=== PATIENT | male | born 1935 | race Caucasian/White ===

== ENCOUNTER → 2020-05-11 09:56 | Outpatient (BNVA) | payer MEDICARE, SELFPAY | PROVIDERS: PCP Internal Medicine; Visit Provider Urology | DX: B37.49 Other urogenital candidiasis (principal) | CPT/HCPCS: 99212 ==

== ENCOUNTER → 2020-05-28 10:03 | Outpatient (BNVA) | payer MEDICARE, SELFPAY | PROVIDERS: PCP Internal Medicine; Visit Provider Urology | DX: B37.49 Other urogenital candidiasis (principal) | CPT/HCPCS: 81002; 99212 ==

== ENCOUNTER 2020-09-18 10:42 | Outpatient (REF) | payer MEDICARE, SELFPAY ==
[2020-09-18 11:38] LABS: MANUAL DIFF FLAG NO
[2020-09-18 11:56] LABS: Basophils Percent Auto 0.6 % (0-2); Eosinophils Percent Auto 0.4 % (0-4); Hematocrit 52.4 % (42-52); Imm Gran Abs Auto 0.02 X10*3/uL (0.00-0.03); Imm Gran Pct Auto 0.3 % (0.0-0.4); Lymphocytes Percent Auto 14.3 % (20-40); Mean Corpuscular HGB Conc 32.4 g/dl (31.0-36.0); Mean Corpuscular Hemoglobin 28.8 pg (27.0-33.0); Mean Corpuscular Volume 88.7 fL (80-98); Mean Platelet Volume 10.8 fL (9.4-12.4); Monocytes Absolute Auto 0.9 X10*3/uL (0.1-1.2); Monocytes Percent Auto 12.5 % (2-11); Neutrophils Absolute Auto 5.2 X10*3/uL (2.0-8.3); Neutrophils Percent Auto 71.9 % (45-73); Platelet Count 197 X10*3/uL (160-400); Red Blood Count 5.91 X10*6/uL (4.60-5.80); Red Cell Distribution Width 14.2 % (11.0-16.0); White Blood Count 7.3 X10*3/uL (4.8-10.8)
[2020-09-18 12:38] LABS: Free T4 (Free Thyroxine) 0.79 ng/dL (0.71-1.85); Thyroid Stimulating Hormone 2.18 uIU/mL (0.32-4.0)
[2020-09-18 12:47] LABS: Vitamin B12 239 pg/mL (200-900)
[2020-09-18 12:49] LABS: Alanine Aminotransferase 12 U/L (0-40); Albumin Level 4.3 g/dL (3.5-5.0); Alkaline Phosphatase 81 U/L (39-117); Anion Gap 15 (12-20); Aspartate Amino Transferase 17 U/L (5-37); Bilirubin Total 0.5 mg/dL (0.0-1.0); Blood Urea Nitrogen 31 mg/dL (9-16); C Reactive Protein 0.13 mg/dL (< or = 0.50); Calcium 9.3 mg/dL (8.4-10.2); Carbon Dioxide 24 mmol/L (22-29); Chloride 105 mmol/L (96-108); Estimated Glomerular Filt Rate > 60; Glucose Random 123 mg/dL (60-115); Potassium 4.9 mmol/L (3.3-5.1); Sodium 139 mmol/L (135-145); Total Protein 7.1 g/dL (6.5-8.0)
== END 2020-09-18 10:43 | disposition home or self-care (01) ==
LOC: HO.10HDL 10:42
PROVIDERS: Visit Provider Internal Medicine
DX: I10 Essential (primary) hypertension (principal); N40.0 Benign prostatic hyperplasia without lower urinary tract symptoms; R25.1 Tremor, unspecified
CPT/HCPCS: 36415; 80053; 82607; 84439; 84443; 85025; 86140

== ENCOUNTER 2020-10-12 13:25 | Outpatient (REF) | payer MEDICARE, SELFPAY ==
--- NOTE | ~2020-10-12 | MR_ITS ---
EXAMINATION: MRI OF THE BRAIN WITHOUT CONTRAST CLINICAL INFORMATION: Ataxia, right face numbness, vertigo. COMPARISON: MRI scan of the brain 06/13/2017. TECHNIQUE: MRI of the brain was obtained using routine sequences without contrast. FINDINGS: No diffusion abnormalities are identified to suggest an acute or subacute infarct. No mass effect or midline shift is seen. The ventricles and sulci are commensurately prominent consistent with moderate diffuse volume loss. There are extensive areas of hyperintense T2 and FLAIR signal in the periventricular and subcortical white matter and in the marisa, increased compared to prior imaging and consistent with chronic microvascular ischemic changes. There are small basal ganglia lacunar infarcts and there are chronic infarcts in the guerra radiata. There are also bilateral changes from ?tat cribl? in the bilateral basal ganglia, demonstrated on prior imaging. No extra-axial fluid collections are seen. The brainstem and cerebellum are normal. No pathologic magnetic susceptibility artifact is identified on the gradient refocused acquisition. The study redemonstrates the chronic changes at the dens, which are unchanged. The major intracranial flow-voids at the level of the [place] of Kenny are preserved. 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 The dural venous sinus flow-voids are maintained. There is trace fluid at the mastoid tips. There are retention cysts in the bilateral maxillary sinuses. There has been interval increase in the size of the well-defined T2 hyperintense focus in the posterior right masseter muscle, which now measures 0.9 cm. MR/MR head/brain wo con IMPRESSION: 1. There are no acute bleeds or territorial infarcts. No masses are demonstrated. 2. 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 There is diffuse volume loss. 3. There has been slight interval increase in the size of the cystic area in the right masseter muscle. Stable changes at the dens. 4. 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 This can be further assessed with an MRA or CTA of the head
== END 2020-10-12 13:26 | disposition home or self-care (01) ==
LOC: HO.MRI 13:25
PROVIDERS: Visit Provider Psychiatry & Neurology Neurology
DX: R27.0 Ataxia, unspecified (principal)
CPT/HCPCS: 70551

== ENCOUNTER 2020-10-16 10:49 | Outpatient (REF) | payer MEDICARE, SELFPAY ==
[2020-10-16 12:37] LABS: Glucose Random 99 mg/dL (60-115)
[2020-10-16 13:14] LABS: Syphilis Screen Nonreactive (Nonreactive)
[2020-10-17 09:01] LABS: Lyme Abs Screen <0.90 index
[2020-10-18 15:27] LABS: Anti Nuclear Antibody Screen NEGATIVE (NEGATIVE)
[2020-10-20 23:11] LABS: Prot Elec - Albumin 4.2 g/dL (3.8-4.8); Prot Elec - Alpha1 0.3 g/dL (0.2-0.3); Prot Elec - Alpha2 0.8 g/dL (0.5-0.9); Prot Elec - Beta 1 0.5 g/dL (0.4-0.6); Prot Elec - Beta 2 0.3 g/dL (0.2-0.5); Prot Elec - Gamma 0.9 g/dL (0.8-1.7); Prot Elec - Total Protein 6.8 g/dL (6.1-8.1)
== END 2020-10-16 10:50 | disposition home or self-care (01) ==
LOC: HO.LAB 10:49
PROVIDERS: PCP Internal Medicine; Visit Provider Psychiatry & Neurology Neurology
DX: G62.9 Polyneuropathy, unspecified (principal)
CPT/HCPCS: 36415; 82947; 84155; 84165; 86038; 86039; 86617; 86618; 86780

== ENCOUNTER 2020-10-20 14:45 | Outpatient (REF) | payer MEDICARE, SELFPAY ==
--- NOTE | ~2020-10-20 | MR_ITS ---
EXAMINATION: MR ANGIOGRAPHY BRAIN WITHOUT CONTRAST CLINICAL INFORMATION: Intracranial aneurysm. COMPARISON: Brain MRI 10/12/2020. TECHNIQUE: A three-dimensional [id number] MR angiogram of the head was performed without contrast. MIP reconstructions were generated in multiple orientations at the acquisition workstation. Multiple three-dimensional surface rendered images and maximum intensity projection images were generated on a dedicated 3-D lab workstation. Arterial stenoses are measured in accordance with NASCET criteria or similar method if applicable. FINDINGS: There is an anteriorly projecting aneurysm of the anterior communicating artery that measures 3.4 mm from base apex. This finding is best depicted on axial image 124 of 156 series 3. Visualized portions of the anterior, middle, and posterior cerebral artery complexes are otherwise normal. There is a shallow laterally projecting contour abnormality involving the cavernous segment of the right internal carotid artery measuring 1.2 mm from base apex best illustrated on axial image 82 of the same series that may represent a small extradural aneurysm. Intracranial internal carotid arteries are otherwise normal. The intradural vertebral artery segments and basilar artery are normal. 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
== END 2020-10-20 14:46 | disposition home or self-care (01) ==
LOC: HO.MRI 14:45
PROVIDERS: Visit Provider Psychiatry & Neurology Neurology
DX: I72.9 Aneurysm of unspecified site (principal)
CPT/HCPCS: 70544

== ENCOUNTER 2020-10-26 10:18 | Outpatient (REF) | payer MEDICARE, SELFPAY ==
--- NOTE | ~2020-10-26 | US_ITS ---
EXAMINATION: US EXTRACRANIAL CAROTID DUPLEX, BILATERAL CLINICAL INFORMATION: TIA COMPARISON: None TECHNIQUE: Real-time ultrasound and Doppler techniques (integrating B-mode 2-D vascular images, Doppler spectral analysis and color-flow Doppler imaging) were utilized to interrogate the extracranial carotid arteries, the vertebral arteries and proximal subclavian arteries bilaterally. The degree of stenosis is determined by criteria similar to NASCET. FINDINGS: Right Side: 1. There is no atherosclerotic plaque seen in the bifurcation/proximal ICA region. 2. The common carotid artery PSV proximally is 65 cm/s and distally 48 cm/s. 3. The proximal internal carotid artery velocities are 43 cm/s systolic and 17 cm/s diastolic. 4. The proximal external carotid artery PSV is 78 cm/s. 5. The vertebral artery shows antegrade flow. Left Side: 1. There is no atherosclerotic plaque seen in the bifurcation/proximal ICA region. 2. The common carotid artery PSV proximally is 89 cm/s and distally 71 cm/s. 3. The proximal internal carotid artery velocities are 43 cm/s systolic and 14 cm/s diastolic. 4. The proximal external carotid artery PSV is 68 cm/s. 5. The vertebral artery shows antegrade flow. US/US carotid duplex BI IMPRESSION: 1. RIGHT: Normal right internal carotid artery without atherosclerotic plaque or hemodynamically significant stenosis. 2. LEFT: Normal left internal carotid artery without atherosclerotic plaque or hemodynamically significant stenosis.
[2020-10-26 12:35] LABS: MANUAL DIFF FLAG NO
[2020-10-26 12:40] LABS: Basophils Percent Auto 0.3 % (0-2); Eosinophils Percent Auto 0.3 % (0-4); Hematocrit 49.9 % (42-52); Hemoglobin 16.1 g/dl (14.0-18.0); Imm Gran Abs Auto 0.02 X10*3/uL (0.00-0.03); Imm Gran Pct Auto 0.2 % (0.0-0.4); Lymphocytes Absolute Auto 1.2 X10*3/uL (1.2-4.9); Lymphocytes Percent Auto 12.9 % (20-40); Mean Corpuscular HGB Conc 32.3 g/dl (31.0-36.0); Mean Corpuscular Hemoglobin 28.8 pg (27.0-33.0); Mean Corpuscular Volume 89.3 fL (80-98); Mean Platelet Volume 10.8 fL (9.4-12.4); Monocytes Absolute Auto 1.1 X10*3/uL (0.1-1.2); Monocytes Percent Auto 11.8 % (2-11); Neutrophils Absolute Auto 6.8 X10*3/uL (2.0-8.3); Neutrophils Percent Auto 74.5 % (45-73); Platelet Count 187 X10*3/uL (160-400); Red Blood Count 5.59 X10*6/uL (4.60-5.80); Red Cell Distribution Width 14.3 % (11.0-16.0); White Blood Count 9.1 X10*3/uL (4.8-10.8)
[2020-10-26 13:43] LABS: Alanine Aminotransferase 12 U/L (0-40); Albumin Level 4.1 g/dL (3.5-5.0); Alkaline Phosphatase 76 U/L (39-117); Anion Gap 13 (12-20); Aspartate Amino Transferase 18 U/L (5-37); Bilirubin Direct 0.2 mg/dL (0.0-0.5); Bilirubin Total 0.7 mg/dL (0.0-1.0); Blood Urea Nitrogen 27 mg/dL (9-16); Calcium 9.4 mg/dL (8.4-10.2); Carbon Dioxide 25 mmol/L (22-29); Chloride 106 mmol/L (96-108); Estimated Glomerular Filt Rate > 60; Glucose Random 94 mg/dL (60-115); Potassium 4.4 mmol/L (3.3-5.1); Sodium 140 mmol/L (135-145); Total Protein 6.7 g/dL (6.5-8.0)
[2020-10-26 13:44] LABS: TSH reflex Free T4 1.96 uIU/mL (0.32-4.0)
[2020-10-28 13:16] LABS: PES - Abn Protein Band 1 <0.2 g/dL (NONE DETECTED); Prot Elec - Albumin 4.1 g/dL (3.8-4.8); Prot Elec - Alpha1 0.3 g/dL (0.2-0.3); Prot Elec - Alpha2 0.7 g/dL (0.5-0.9); Prot Elec - Beta 1 0.4 g/dL (0.4-0.6); Prot Elec - Beta 2 0.3 g/dL (0.2-0.5); Prot Elec - Gamma 0.8 g/dL (0.8-1.7); Prot Elec - Total Protein 6.6 g/dL (6.1-8.1)
[2020-10-29 16:52] LABS: IgA 227 mg/dL (70-320); IgG 843 mg/dL (600-1540); IgM 148 mg/dL (50-300)
== END 2020-10-26 10:19 | disposition home or self-care (01) ==
LOC: HO.US 10:18
PROVIDERS: Visit Provider Psychiatry & Neurology Neurology
DX: G62.9 Polyneuropathy, unspecified (principal); I63.9 Cerebral infarction, unspecified; Z86.73 Personal history of transient ischemic attack (TIA), and cerebral infarction without residual deficits
CPT/HCPCS: 36415; 80053; 80076; 82248; 82784; 84155; 84165; 84443; 85025; 86334; 93880

== ENCOUNTER 2020-11-02 13:50 | Outpatient (REF) | payer MEDICARE, SELFPAY ==
[2020-11-05 13:01] LABS: PES - Abn Protein Band 1 <0.2 g/dL (NONE DETECTED); Prot Elec - Albumin 4.3 g/dL (3.8-4.8); Prot Elec - Alpha1 0.3 g/dL (0.2-0.3); Prot Elec - Alpha2 0.8 g/dL (0.5-0.9); Prot Elec - Beta 1 0.5 g/dL (0.4-0.6); Prot Elec - Beta 2 0.3 g/dL (0.2-0.5); Prot Elec - Gamma 0.9 g/dL (0.8-1.7)
[2020-11-05 13:52] LABS: IgA 239 mg/dL (70-320); IgG 883 mg/dL (600-1540); IgM 153 mg/dL (50-300)
== END 2020-11-02 13:51 | disposition home or self-care (01) ==
LOC: HO.LAB 13:50
PROVIDERS: PCP Internal Medicine; Visit Provider Psychiatry & Neurology Neurology
DX: G62.9 Polyneuropathy, unspecified (principal)
CPT/HCPCS: 36415; 82784; 84155; 84165; 86334

== ENCOUNTER → 2020-11-19 13:33 | Outpatient (REF) | payer MEDICARE, SELFPAY ==
--- NOTE | 2020-11-19 14:00 | CA_ITS ---
Transthoracic Echocardiogram Patient (Last, First, Middle): Yovanny Tiwari G Gender: Male Date of : 1935 Age: 85 Procedure Date: 11/19/2020 Procedure Type: Transthoracic Echocardiogram Location: OP Height: 187.96 cm Weight: 92.99 kg BSA: 2.20 m2 Heart Rate: bpm BP: 122 / 74 mmHg Reliability Manager: TIMMY Referring MD: Ilir Marcus MD Wedding Coordinator: Darin Cuba MD Symptoms: CVA Study Quality: Technically Difficult ECG Rhythm: Sinus Conclusions: - 1. Normal LV systolic function with impaired relaxation filling pattern 2. Moderately dilated ascending aorta 3. Normal cardiac valvular Doppler 4. No gross pericardial effusion Findings Left Ventricle Normal left ventricular size, thickness, and systolic function. The visually estimated ejection fraction is between 60-65%. Spectral Doppler is indicative of an impaired relaxation filling pattern. There is mild septal asymmetric hypertrophy. Right Ventricle The right ventricle was not well visualized. Atria The left atrium is normal in size. Interatrial shunt cannot be excluded. The right atrium was not well visualized. Aortic Valve The aortic valve structure and function is likely normal. There is mild calcification of the aortic valve. There is no aortic valve stenosis. There is no aortic valve regurgitation. Mitral Valve Likely normal mitral valve structure and function. There is trace mitral valve regurgitation. There is no mitral valve stenosis. Pulmonic Valve The pulmonic valve was not well visualized. Tricuspid Valve Likely normal tricuspid valve structure and function. Tricuspid regurgitation envelope is inadequate for calculation of right ventricular systolic pressure. String like linear density that is mobile, attached to tricuspid leaflet most likely ruptured cord Great Vessels The pulmonary artery was not well visualized. There is moderate dilatation of the ascending aorta. Venous The inferior vena cava is normal in size and collapses greater than 50% with inspiration. Pericardium/Pleural There is no evidence of pericardial effusion. Prior Study Comparison No prior study available for comparison. Measurements 2D Linear Measurements IVSd: 1.20 0.6-0.9/0.6-1.0 cm LVIDd: 4.46 3.9-5.3/4.2-5.9 cm LVIDd Index: 2.03 2.4-3.2/2.2-3.1 cm/m2 LVIDs: 2.43 2.0-3.6 cm LVPWd: 0.90 0.7-1.1 cm Ao Root: 3.80 2.1-3.5 cm LA Diam: 3.40 2.7-3.8/3.0-4.0 cm LAIDs Index: 1.55 1.5-2.3 cm/m2 LV Mass: 200.92 67-162/88-224 g LV Mass Index: 91.33 43-95/49-115 g/m2 LVOT Diam: 2.10 3.0+(-)1.3 cm 2D Systolic Function EF 4C: 68.50 >55% EF 2C: 76.10 >55% EF BiP: 72.40 >55% Mitral Valve MV Pk E: 0.53 MV PK A: 0.83 MV Decel Time: 326.00 E/A: 0.60 E'Lateral: 5.98 E'Medial: 5.22 E/E' Med: 10.10 E/E' Lat: 8.80 PHT: 95.00 MVA PHT: 2.32 Decel [place]: 1.62 Aortic Valve AoV Pk Kiel: 1.18 AoV Pk Grad: 6.00 LVOT LVOT Pk Kiel: 1.02 LVOT Mn Kiel: 0.67 LVOT VTI: 0.21 LVOT Pk Grad: 4.00 LVOT Mn Grad: 2.00 LVOT Diam: 2.10 LVOT Area: 3.46 Diastolic Function MV Pk E: 0.53 MV Pk A: 0.83 E/A: 0.60 E'Medial: 5.22 E/E' Med: 10.10 E' Laterial: 5.98 E/E' Lat: 8.80 Tricuspid Valve RA Press: 3.00 Great Vessels Aorta Ao Root-2D: 3.80 2.0-3.7 cm Ao Asc: 4.50 2.1-3.4 cm Ao Arch: 2.90 Updated in Other Vendor System with Status of Final Darin Cuba MD electronically signed on 11/20/2020 2:08:27 PM with status of Final
== END ==
LOC: HO.CARD 13:33
PROVIDERS: Visit Provider Psychiatry & Neurology Neurology
DX: Z86.73 Personal history of transient ischemic attack (TIA), and cerebral infarction without residual deficits (principal)
CPT/HCPCS: 93306

== ENCOUNTER → 2020-11-20 10:40 | Outpatient (REF) | payer MEDICARE, SELFPAY ==
--- NOTE | 2020-11-20 11:00 | HM_ITS ---
TEST PERFORMED: Cardiac event monitoring. INDICATION: Cerebral infarction. REQUESTING PHYSICIAN: Ilir Marcus MD. ENROLLMENT PERIOD: 11/21/2019 to 12/20/2020-30 days. FINDINGS: In the above monitoring period, the underlying rhythm was sinus. Rates ranged from 39 beats per minute to 97 beats per minute. There were no symptoms noted during this time. The rhythm is essentially sinus rhythm throughout. There was some sinus bradycardia more prominent during the sleep hours, but otherwise no other arrhythmia. CONCLUSION: Study shows sinus rhythm and sinus bradycardia during sleep hours, but otherwise unremarkable. Myron Castellano MD HS/MODL / [id number]
== END ==
LOC: HO.CARD 10:40
PROVIDERS: Visit Provider Psychiatry & Neurology Neurology
DX: Z86.73 Personal history of transient ischemic attack (TIA), and cerebral infarction without residual deficits (principal)
CPT/HCPCS: 93270

== ENCOUNTER 2020-11-25 13:00 | Outpatient (RCR) | payer MEDICARE, SELFPAY | END 2020-12-02 12:07 | disposition home or self-care (01) | LOC: HO.PTCHIC 13:00 | PROVIDERS: PCP Internal Medicine; Visit Provider Psychiatry & Neurology Neurology | DX: R27.0 Ataxia, unspecified (principal); M54.16 Radiculopathy, lumbar region | CPT/HCPCS: 97110; 97112; 97140; 97162; 97530 ==

== ENCOUNTER 2020-11-30 10:33 | Outpatient (REF) | payer MEDICARE, SELFPAY ==
--- NOTE | ~2020-11-30 | XR_ITS ---
EXAMINATION: XR LUMBOSACRAL SPINE CLINICAL INFORMATION: Low back pain COMPARISON: None TECHNIQUE: Three views of the lumbosacral spine. FINDINGS: There is mild curvature of the lower lumbar sacral spine to the left. Bone alignment is otherwise normal. No fracture or dislocation is seen. There is multilevel degenerative spondylosis. There is mild disc space narrowing at L5-S1. There is lower lumbar spine facet arthritis. There is evidence of atherosclerotic disease. XR/XR lumbar spine 2-3V IMPRESSION: Degenerative changes.
== END 2020-11-30 10:34 | disposition home or self-care (01) ==
LOC: HO.XRAY 10:33
PROVIDERS: PCP Internal Medicine; Visit Provider Psychiatry & Neurology Neurology
DX: M54.5 Low back pain (principal)
CPT/HCPCS: 72100

== ENCOUNTER 2021-01-06 11:17 | Outpatient (REF) | payer MEDICARE, SELFPAY ==
[2021-01-06 13:43] LABS: MANUAL DIFF FLAG NO
[2021-01-06 13:51] LABS: Basophils Percent Auto 0.5 % (0-2); Eosinophils Percent Auto 0.4 % (0-4); Hematocrit 51.8 % (42-52); Hemoglobin 16.7 g/dl (14.0-18.0); Imm Gran Abs Auto 0.02 X10*3/uL (0.00-0.03); Imm Gran Pct Auto 0.2 % (0.0-0.4); Lymphocytes Absolute Auto 1.1 X10*3/uL (1.2-4.9); Lymphocytes Percent Auto 12.9 % (20-40); Mean Corpuscular HGB Conc 32.2 g/dl (31.0-36.0); Mean Corpuscular Hemoglobin 28.6 pg (27.0-33.0); Mean Corpuscular Volume 88.7 fL (80-98); Mean Platelet Volume 11.4 fL (9.4-12.4); Monocytes Percent Auto 12.6 % (2-11); Neutrophils Percent Auto 73.4 % (45-73); Platelet Count 188 X10*3/uL (160-400); Red Blood Count 5.84 X10*6/uL (4.60-5.80); Red Cell Distribution Width 14.3 % (11.0-16.0); White Blood Count 8.2 X10*3/uL (4.8-10.8)
[2021-01-06 14:13] LABS: Prothrombin Time 11.2 SEC (9.9-13.0)
[2021-01-06 14:16] LABS: Partial Thromboplastin Time 36.7 SEC (24.1-38.0)
[2021-01-06 14:49] LABS: Anion Gap 16 (12-20); Blood Urea Nitrogen 27 mg/dL (9-16); Calcium 9.7 mg/dL (8.4-10.2); Carbon Dioxide 22 mmol/L (22-29); Chloride 104 mmol/L (96-108); Estimated Glomerular Filt Rate > 60; Glucose Random 122 mg/dL (60-115); Potassium 4.3 mmol/L (3.3-5.1); Sodium 138 mmol/L (135-145)
== END 2021-01-06 11:18 | disposition home or self-care (01) ==
LOC: HO.10HDL 11:17
PROVIDERS: PCP Internal Medicine; Visit Provider Internal Medicine
DX: Z01.818 Encounter for other preprocedural examination (principal); I10 Essential (primary) hypertension
CPT/HCPCS: 36415; 80048; 85025; 85610; 85730

== ENCOUNTER 2021-06-15 14:05 | Outpatient (REF) | payer MEDICARE, SELFPAY ==
--- NOTE | ~2021-06-15 | MR_ITS ---
MR ANGIOGRAPHY BRAIN WITHOUT CONTRAST CLINICAL INFORMATION: Aneurysm. COMPARISON: MRA head 10/20/2020. TECHNIQUE: Noncontrast [id number] MRA of the head is obtained. Vascular post-processing, including 2-dimensional and 3-dimensional reformatted images were created and reviewed on an independent workstation under concurrent physician supervision. Stenoses are graded per criteria similar to NASCET. 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 There are no new aneurysms. No significant arterial stenoses in no acute arterial occlusions intracranially. Etat crible appearance of the basal ganglia bilaterally as the sequela of chronic hypertension. 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 - Etat crible appearance of the basal ganglia bilaterally as the sequela of chronic hypertension.
== END 2021-06-15 14:06 | disposition home or self-care (01) ==
LOC: HO.MRI 14:05
PROVIDERS: PCP Internal Medicine; Visit Provider Psychiatry & Neurology Neurology
DX: I72.9 Aneurysm of unspecified site (principal)
CPT/HCPCS: 70544

== ENCOUNTER 2021-08-23 09:29 | Outpatient (REF) | payer MEDICARE, SELFPAY ==
[2021-08-23 10:43] LABS: MANUAL DIFF FLAG NO
[2021-08-23 10:46] LABS: Basophils Percent Auto 0.5 % (0-2); Eosinophils Percent Auto 0.3 % (0-4); Hematocrit 51.6 % (42.0-52.0); Hemoglobin 16.4 g/dl (14.0-18.0); Imm Gran Abs Auto 0.01 X10*3/uL (0.00-0.03); Imm Gran Pct Auto 0.2 % (0.0-0.4); Lymphocytes Absolute Auto 1.1 X10*3/uL (1.2-4.9); Lymphocytes Percent Auto 18.5 % (20-40); Mean Corpuscular HGB Conc 31.8 g/dl (31.0-36.0); Mean Corpuscular Hemoglobin 28.8 pg (27.0-33.0); Mean Corpuscular Volume 90.7 fL (80.0-98.0); Monocytes Absolute Auto 0.7 X10*3/uL (0.1-1.2); Monocytes Percent Auto 11.5 % (2-11); Neutrophils Absolute Auto 3.9 x10*3/uL (2.0-8.3); Platelet Count 190 X10*3/uL (160-400); Red Blood Count 5.69 X10*6/uL (4.60-5.80); Red Cell Distribution Width 14.3 % (11.0-16.0); White Blood Count 5.7 X10*3/uL (4.8-10.8)
[2021-08-23 11:03] LABS: Alanine Aminotransferase 17 U/L (0-40); Albumin Level 4.2 g/dL (3.5-5.0); Alkaline Phosphatase 72 U/L (39-117); Anion Gap 10 (12-20); Aspartate Amino Transferase 18 U/L (5-37); Bilirubin Total 0.8 mg/dL (0.0-1.0); Blood Urea Nitrogen 26 mg/dL (9-16); Calcium 9.4 mg/dL (8.4-10.2); Carbon Dioxide 28 mmol/L (22-29); Chloride 104 mmol/L (96-108); Cholesterol 143 mg/dL; Estimated Glomerular Filt Rate > 60; Glucose Fasting 99 mg/dL (60-99); HDL Cholesterol 40 mg/dL; LDL Cholesterol Calculated 85 mg/dl; Potassium 4.4 mmol/L (3.3-5.1); Sodium 138 mmol/L (135-145); Triglycerides 91 mg/dL
[2021-08-23 11:26] LABS: Prostate Specific Antigen 0.51 ng/mL (<0.05-4.0)
== END 2021-08-23 09:30 | disposition home or self-care (01) ==
LOC: HO.10HDL 09:29
PROVIDERS: Visit Provider Internal Medicine
DX: Z12.5 Encounter for screening for malignant neoplasm of prostate (principal); I10 Essential (primary) hypertension; N40.0 Benign prostatic hyperplasia without lower urinary tract symptoms; K57.90 Diverticulosis of intestine, part unspecified, without perforation or abscess without bleeding
CPT/HCPCS: 36415; 80053; 80061; 84153; 85025

== ENCOUNTER 2022-02-17 09:28 | Outpatient (REF) | payer MEDICARE, SELFPAY ==
[2022-02-23 09:07] LABS: Alpha-Tocopherol 9.2 mg/L (5.7-19.9); Beta-Gamma Tocopherol <1.0 mg/L (<=4.3)
[2022-02-23 14:56] LABS: Transglutaminase IgA <1.0 U/mL
== END 2022-02-17 09:29 | disposition home or self-care (01) ==
LOC: HO.10HDL 09:28
PROVIDERS: Visit Provider Internal Medicine
DX: R20.0 Anesthesia of skin (principal); R53.1 Weakness
CPT/HCPCS: 36415; 84446; 86364

== ENCOUNTER 2022-07-20 14:30 | Outpatient (REF) | payer MEDICARE, SELFPAY ==
[2022-07-21 13:41] LABS: Adenovirus F 40/41 Not Detected (Not Detect.); Astrovirus Not Detected (Not Detect.); Campylobacter Not Detected (Not Detect.); Cryptosporidium Not Detected (Not Detect.); Cyclospora cayetanensis Not Detected (Not Detect.); E. coli EAEC Not Detected (Not Detect.); E. coli EPEC Not Detected (Not Detect.); E. coli ETEC Not Detected (Not Detect.); E. coli STEC Not Detected (Not Detect.); Entamoeba histolytica Not Detected (Not Detect.); Giardia lamblia Not Detected (Not Detect.); Norovirus GI/GII Not Detected (Not Detect.); Plesiomonas shigelloides Not Detected (Not Detect.); Rotavirus A Not Detected (Not Detect.); Salmonella Not Detected (Not Detect.); Sapovirus Not Detected (Not Detect.); Shigella sp./EIEC Not Detected (Not Detect.); Vibrio Not Detected (Not Detect.); Vibrio Cholerae Not Detected (Not Detect.); Yersinia enterocolitica Not Detected (Not Detect.)
== END 2022-07-20 14:31 | disposition home or self-care (01) ==
LOC: HO.LNP 14:30
PROVIDERS: Visit Provider Internal Medicine
DX: R19.7 Diarrhea, unspecified (principal)
CPT/HCPCS: 87507

== ENCOUNTER 2022-08-26 15:16 | Outpatient (REF) | payer MEDICARE, SELFPAY ==
--- NOTE | ~2022-08-26 | MR_ITS ---
MRI OF THE BRAIN WITHOUT IV CONTRAST MRA OF THE BRAIN WITHOUT IV CONTRAST INDICATION: Aneurysm. Vision loss. COMPARISON: MRA head 06/15/2021 and brain MRI 10/12/2020. TECHNIQUE: Multiplanar multisequence MR imaging of the brain was obtained without IV contrast. Additionally, a noncontrast [id number] MRA of the head is obtained. Vascular post-processing, including 2-dimensional and 3-dimensional reformatted images were created and reviewed on an independent workstation under concurrent physician supervision. Stenoses are graded per criteria similar to NASCET. FINDINGS: BRAIN MRI: There is no hydrocephalus, extra-axial surface collection, or herniation. There is global cerebral volume loss, there is moderate chronic microangiopathy, and there is an etat crible appearance of the basal ganglia bilaterally as the sequela of chronic hypertension. The major flow voids at the skull base are preserved. There is no acute infarct on diffusion-weighted imaging. There is no intracranial hemorrhage on the gradient recalled echo acquisition. The midline structures are normal. The cerebellar tonsils are normally positioned. The cerebellum and brainstem are normal. Chronic os odontoideum again noted, unchanged when compared to cervical spine MRI dated 12/21/2007. Alignment stable. Osseous marrow signal intensity is homogenous. The visualized soft tissues are unremarkable. 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 There are no significant arterial stenoses and there are no acute arterial occlusions intracranially. MR/MR head/brain wo con IMPRESSION: - There are no acute intracranial findings. There is global cerebral volume loss, there is moderate chronic microangiopathy, and there is an etat crible appearance of the basal ganglia bilaterally as the sequela of chronic hypertension. 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 - Chronic os odontoideum again noted, unchanged when compared to cervical spine MRI dated 12/21/2007. Alignment stable
--- NOTE | ~2022-08-26 | MR_ITS ---
MRI OF THE BRAIN WITHOUT IV CONTRAST MRA OF THE BRAIN WITHOUT IV CONTRAST INDICATION: Aneurysm. Vision loss. COMPARISON: MRA head 06/15/2021 and brain MRI 10/12/2020. TECHNIQUE: Multiplanar multisequence MR imaging of the brain was obtained without IV contrast. Additionally, a noncontrast [id number] MRA of the head is obtained. Vascular post-processing, including 2-dimensional and 3-dimensional reformatted images were created and reviewed on an independent workstation under concurrent physician supervision. Stenoses are graded per criteria similar to NASCET. FINDINGS: BRAIN MRI: There is no hydrocephalus, extra-axial surface collection, or herniation. There is global cerebral volume loss, there is moderate chronic microangiopathy, and there is an etat crible appearance of the basal ganglia bilaterally as the sequela of chronic hypertension. The major flow voids at the skull base are preserved. There is no acute infarct on diffusion-weighted imaging. There is no intracranial hemorrhage on the gradient recalled echo acquisition. The midline structures are normal. The cerebellar tonsils are normally positioned. The cerebellum and brainstem are normal. Chronic os odontoideum again noted, unchanged when compared to cervical spine MRI dated 12/21/2007. Alignment stable. Osseous marrow signal intensity is homogenous. The visualized soft tissues are unremarkable. 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 There are no significant arterial stenoses and there are no acute arterial occlusions intracranially. MR/MR angio head wo con IMPRESSION: - There are no acute intracranial findings. There is global cerebral volume loss, there is moderate chronic microangiopathy, and there is an etat crible appearance of the basal ganglia bilaterally as the sequela of chronic hypertension. 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 - Chronic os odontoideum again noted, unchanged when compared to cervical spine MRI dated 12/21/2007. Alignment stable
== END 2022-08-26 15:17 | disposition home or self-care (01) ==
LOC: HO.MRI 15:16
PROVIDERS: PCP Internal Medicine; Visit Provider Psychiatry & Neurology Neurology
DX: I77.9 Disorder of arteries and arterioles, unspecified (principal); H54.7 Unspecified visual loss
CPT/HCPCS: 70544; 70551

== ENCOUNTER → 2023-01-13 13:36 | Outpatient (REF) | payer MEDICARE, SELFPAY ==
--- NOTE | 2023-01-13 13:40 | CA_ITS ---
Transthoracic Echocardiogram Patient (Last, First, Middle): Yovanny Tiwari G Gender: Male Date of : 1935 Age: 87 Procedure Date: 01/13/2023 Procedure Type: Transthoracic Echocardiogram Location: OP Height: 187.96 cm Weight: 90.72 kg BSA: 2.17 m2 Heart Rate: 45 bpm BP: 150 / 80 mmHg Diesel Engine Tester: NANCY Referring MD: Josemanuel Vital MD Symptoms: DIZZINESS,HTN R/LACUNAR INFARCTS R42 Study Quality: Technically Difficult ECG Rhythm: Bradycardia Conclusions: - The left ventricular systolic function is normal. The calculated ejection fraction is 58% by biplane method. 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 - Consider chest CTA for further evaluation. Findings Left Ventricle Normal left ventricular cavity size. There is mildly increased left ventricular wall thickness. The left ventricular systolic function is normal. The calculated ejection fraction is 58% by biplane method. There is no evidence of regional wall motion abnormalities. Evidence suggests grade I (mild) diastolic dysfunction. LV peak GLS -17.2%. Right Ventricle Moderately increased right ventricular cavity size. There is normal right ventricular systolic function. Atria Both atria are normal in size. Aortic Valve There is mild calcification of the aortic valve. There is no aortic valve stenosis. There is no aortic valve regurgitation. Mitral Valve There is mild mitral annular calcification. There is no mitral valve regurgitation. There is no mitral valve stenosis. Pulmonic Valve The pulmonic valve is likely normal. Tricuspid Valve Normal tricuspid valve structure. There is no tricuspid valve regurgitation. Tricuspid regurgitation envelope is inadequate for calculation of right ventricular systolic pressure. 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 Venous The inferior vena cava was not well visualized. The inferior vena cava is normal in size. Pericardium/Pleural There is no evidence of pericardial effusion. Prior Study Comparison Changes noted compared to prior study dated: 11/19/2020. Increase in ascending aortic size. Measurements 2D Linear Measurements IVSd: 1.15 0.6-0.9/0.6-1.0 cm LVIDd: 4.40 3.9-5.3/4.2-5.9 cm LVIDd Index: 2.03 2.4-3.2/2.2-3.1 cm/m2 LVIDs: 2.62 2.0-3.6 cm LVPWd: 1.01 0.7-1.1 cm LA Diam: 3.50 2.7-3.8/3.0-4.0 cm LAIDs Index: 1.61 1.5-2.3 cm/m2 LV Mass: 205.00 67-162/88-224 g LV Mass Index: 94.47 43-95/49-115 g/m2 LVOT Diam: 2.20 3.0+(-)1.3 cm 2D Systolic Function EF 4C: 52.10 >55% EF 2C: 62.90 >55% EF BiP: 57.90 >55% Mitral Valve MV Pk E: 0.49 MV PK A: 1.08 MV Decel Time: 466.00 E/A: 0.50 E'Lateral: 7.94 E'Medial: 3.70 E/E' Med: 13.30 E/E' Lat: 6.20 PHT: 137.00 MVA PHT: 1.61 Decel [place]: 1.06 Aortic Valve AoV Pk Kiel: 1.11 AoV Mn Kiel: 0.76 AoV VTI: 0.27 AoV Pk Grad: 5.00 Aov Mn Grad: 3.00 LUKAS Cont.VTI: 3.70 LVOT LVOT Pk Kiel: 1.02 LVOT Mn Kiel: 0.71 LVOT VTI: 0.26 LVOT Pk Grad: 4.00 LVOT Mn Grad: 2.00 LVOT Diam: 2.20 LVOT Area: 3.80 Diastolic Function MV Pk E: 0.49 MV Pk A: 1.08 E/A: 0.50 E'Medial: 3.70 E/E' Med: 13.30 E' Laterial: 7.94 E/E' Lat: 6.20 Right Ventricle TAPSE (mm): 28.80 TVS' Kiel: 13.30 Great Vessels Aorta Sinus of Valsalva: 4.30 2.0-3.5 cm Ao Asc: 4.80 2.1-3.4 cm Ao Arch: 3.10 Pulmonary Valve PV Pk Kiel: 0.80 Peak PV Grad: 3.00 Updated in Other Vendor System with Status of Final Myron Castellano MD electronically signed on 01/14/2023 11:35:29 AM with status of Final
== END ==
LOC: HO.CARD 13:36
PROVIDERS: PCP Internal Medicine; Visit Provider Internal Medicine
DX: R42 Dizziness and giddiness (principal)
CPT/HCPCS: 93306; 93356

== ENCOUNTER → 2023-01-13 13:40 | Outpatient (BNV) | payer MEDICARE, SELFPAY | PROVIDERS: PCP Internal Medicine; Visit Provider Internal Medicine | DX: I51.9 Heart disease, unspecified (principal) | CPT/HCPCS: 93306 ==

== ENCOUNTER 2023-07-20 14:28 | Outpatient (REF) | payer MEDICARE, SELFPAY ==
[2023-07-20 14:47] LABS: MANUAL DIFF FLAG NO
[2023-07-20 15:31] LABS: Basophils Absolute Auto 0.1 X10*3/uL (0.0-0.2); Basophils Percent Auto 0.6 % (0-2); Eosinophils Percent Auto 0.5 % (0-4); Hematocrit 50.4 % (42.0-52.0); Hemoglobin 16.1 g/dl (14.0-18.0); Imm Gran Abs Auto 0.02 X10*3/uL (0.00-0.03); Imm Gran Pct Auto 0.2 % (0.0-0.4); Lymphocytes Absolute Auto 1.4 X10*3/uL (1.2-4.9); Lymphocytes Percent Auto 16.4 % (20-40); Mean Corpuscular HGB Conc 31.9 g/dl (31.0-36.0); Mean Corpuscular Volume 87.5 fL (80.0-98.0); Mean Platelet Volume 10.7 fL (9.4-12.4); Neutrophils Absolute Auto 6.1 x10*3/uL (2.0-8.3); Neutrophils Percent Auto 70.3 % (45-73); Platelet Count 195 X10*3/uL (160-400); Red Blood Count 5.76 X10*6/uL (4.60-5.80); Red Cell Distribution Width 14.2 % (11.0-16.0); White Blood Count 8.6 X10*3/uL (4.8-10.8)
[2023-07-20 16:06] LABS: Alanine Aminotransferase 15 U/L (0-40); Albumin Level 4.3 g/dL (3.5-5.0); Alkaline Phosphatase 90 U/L (39-117); Anion Gap 14 (12-20); Aspartate Amino Transferase 19 U/L (5-37); Bilirubin Total 0.3 mg/dL (0.0-1.0); Blood Urea Nitrogen 27 mg/dL (9-16); C Reactive Protein < 0.10 mg/dL (< or = 0.50); Calcium 9.7 mg/dL (8.4-10.2); Carbon Dioxide 28 mmol/L (22-29); Chloride 103 mmol/L (96-108); Estimated Glomerular Filt Rate 56; Glucose Random 88 mg/dL (60-115); Potassium 4.7 mmol/L (3.3-5.1); Sodium 140 mmol/L (135-145); Total Protein 7.4 g/dL (6.5-8.0)
[2023-07-20 16:17] LABS: T4 Thyroxine 6.1 ug/dL (4.5-12.0); Thyroid Stimulating Hormone 2.64 uIU/mL (0.32-4.0)
[2023-07-20 16:22] LABS: Erythrocyte Sedimentation Rate 2 MM/HR (0-15)
[2023-07-20 16:35] LABS: Folate 8.2 ng/mL (> or = 4.0); Prostate Specific Antigen 0.59 ng/mL (<0.05-4.0)
[2023-07-20 16:40] LABS: Vitamin B12 375 pg/mL (200-900)
== END 2023-07-20 14:29 | disposition home or self-care (01) ==
LOC: HO.LAB 14:28
PROVIDERS: PCP Internal Medicine; Visit Provider Internal Medicine
DX: R53.1 Weakness (principal); D64.9 Anemia, unspecified; I10 Essential (primary) hypertension; Z12.5 Encounter for screening for malignant neoplasm of prostate
CPT/HCPCS: 36415; 80053; 82550; 82607; 82746; 84153; 84436; 84443; 85025; 85652; 86140

== ENCOUNTER 2024-06-21 13:50 | Outpatient (REF) | payer MEDICARE, SELFPAY ==
[2024-06-21 14:07] LABS: MANUAL DIFF FLAG NO
[2024-06-21 14:40] LABS: Basophils Absolute Auto 0.1 X10*3/uL (0.0-0.2); Basophils Percent Auto 0.6 % (0-2); Eosinophils Percent Auto 0.3 % (0-4); Hematocrit 48.8 % (42.0-52.0); Hemoglobin 15.9 g/dl (14.0-18.0); Imm Gran Abs Auto 0.03 X10*3/uL (0.00-0.03); Imm Gran Pct Auto 0.3 % (0.0-0.4); Lymphocytes Absolute Auto 1.6 X10*3/uL (1.2-4.9); Lymphocytes Percent Auto 16.8 % (20-40); Mean Corpuscular HGB Conc 32.6 g/dl (31.0-36.0); Mean Corpuscular Hemoglobin 28.9 pg (27.0-33.0); Mean Corpuscular Volume 88.7 fL (80.0-98.0); Mean Platelet Volume 11.1 fL (9.4-12.4); Monocytes Absolute Auto 1.2 X10*3/uL (0.1-1.2); Neutrophils Absolute Auto 6.5 x10*3/uL (2.0-8.3); Platelet Count 195 X10*3/uL (160-400); Red Cell Distribution Width 14.6 % (11.0-16.0); White Blood Count 9.4 X10*3/uL (4.8-10.8)
[2024-06-21 14:54] LABS: Appearance Urine Clear; Color Urine Dark Yellow; Glucose Urine UA Negative (Negative); Leukocyte Esterase Urine Negative (Negative); Nitrite Urine Negative (Negative); Urine Blood Negative (Negative); Urine Ketones Negative (Negative); Urine Protein Negative (Neg-Trace)
[2024-06-21 15:17] LABS: Alanine Aminotransferase 18 U/L (0-40); Albumin Level 4.1 g/dL (3.5-5.0); Anion Gap 13 (12-20); Aspartate Amino Transferase 25 U/L (5-37); Bilirubin Total 0.3 mg/dL (0.0-1.0); Blood Urea Nitrogen 30 mg/dL (9-16); Calcium 9.6 mg/dL (8.4-10.2); Carbon Dioxide 25 mmol/L (22-29); Chloride 107 mmol/L (96-108); Cholesterol 148 mg/dL (<200); Estimated Glomerular Filt Rate > 60; Glucose Random 100 mg/dL (60-115); Potassium 4.3 mmol/L (3.3-5.1); Sodium 141 mmol/L (135-145); Total Protein 7.3 g/dL (6.5-8.0)
[2024-06-21 16:24] LABS: Alkaline Phosphatase 92 U/L (39-117)
[2024-06-21 17:19] LABS: Prostate Specific Antigen 1.04 ng/mL (<0.05-4.0)
== END 2024-06-21 13:51 | disposition home or self-care (01) ==
LOC: HO.LAB 13:50
PROVIDERS: PCP Internal Medicine; Visit Provider Internal Medicine
DX: I10 Essential (primary) hypertension (principal); Z12.5 Encounter for screening for malignant neoplasm of prostate; N40.0 Benign prostatic hyperplasia without lower urinary tract symptoms
CPT/HCPCS: 36415; 80053; 81003; 82465; 84153; 85025

== ENCOUNTER 2024-10-10 14:12 | Outpatient (AMB) | payer MEDICARE, SELFPAY ==
--- NOTE | 2024-10-10 14:10 | MHC.PC.OV ---
Vital Signs 10/10/24 14:18 Weight 195 lb BP 130/63 Respiration 14 Pulse 60 Pulse Source Pulse Oximeter Temp 98.0 F Temp Source Temporal Artery Scan Pulse Oximetry (%) 98 Oxygen Delivery Method Room Air Intake Visit Reasons: Routine Beef Specialist Required: No Accompanied by: Self / Same As Patient Allergies No Known Allergies [No Known Allergies*] Allergy (Unverified 10/10/24 14:11) Tobacco use date assessed: 10/10/24 Fall risk assessment: 1 Fall in past year Last assessed Fall Risk: 10/10/24 Dental Screening Dental Screen Date: 10/10/24 Did you have a dental visit in the last 12 months?: Yes Did you have a dental problem in the last 6 months where you did not have access to dental care?: No Was dental information given to patient?: Patient has dentist HPI HPI Comments History of Present Illness Details The patient is a 88 year old male with a past medical history of hypertension, BPH, balance issues, presenting for follow up. CV: On 130/63. Denies chest pain, shortness of breath. Ongoing issues with balance. Follows with Dr Marcus. No dizziness/vertigo. Easier to fatigue. 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 Legs frequently heavy. Feels uncoordinated ROS see HPI PHYSICAL EXAM: GENERAL: Alert and oriented x 3. NAD EYES: EOMI. Anicteric. HENT: Moist mucous membranes. No scleral icterus. No cervical lymphadenopathy. LUNGS: Clear to auscultation bilaterally. CARDIOVASCULAR: Regular rate and rhythm. No murmur. No JVD. ABDOMEN: Soft, non-tender +bs EXTREMITIES: No edema. Non-tender. SKIN: No rashes or lesions. Warm. NEUROLOGIC: No focal neurological deficits. CN II-XII grossly intact PSYCHIATRIC: Cooperative. Appropriate mood and affect [facility] Medical History Hematuria HTN (hypertension) Yeast dermatitis of penis Family History Father No problems noted. Mother No problems noted. Social History Housing: House Unable to assess alcohol history related to: Unknown Alcohol intake: current Alcohol intake frequency: does not drink Patient Tobacco Use Status: Former Tobacco user Tobacco use type: Pipe service: Yes Current occupational status: retired Cognitive needs: Yes (cane ) Hearing needs: No Vision needs: Yes (rx glassed) Questionnaire PHQ-9 Over the last 2 weeks, how often have you been bothered by any of the following problems? 1. Little interest or pleasure in doing things: not at all 2. Feeling down, depressed, or hopeless: not at all 3. Trouble falling or staying asleep, or sleeping too much: not at all 4. Feeling tired or having little energy: not at all 5. Poor appetite or overeating: not at all 6. Feeling bad about yourself - or that you are a failure or have let yourself or your family down: not at all 7. Trouble concentrating on things, such as reading the newspaper or watching television: not at all 8. Moving or speaking so slowly that other people could have noticed. Or the opposite - being so fidgety or restless that you have been moving around a lot more than usual: not at all 9. Thoughts that you would be better off or of hurting yourself in some way: not at all Total score: 0 Depression Screening Interpretation: Negative Depression Screening Done: Yes 18718 - PHQ-9 Billing: Yes Source: Developed by Drs. Yovanny Espino, Leslie Odell, Anders Limon and colleagues, with an educational eben from [employer]. Thrive Questionnaire Date Thrive assessed: 10/10/24 I am a: Patient What is your living situation today?: I have a steady place to live Within the past 12 months, did the food you bought not last and you didn't have the money to get more?: Never true Within the past 12 months, did you worry whether your food would run out before you got money to buy more?: Never true Do you have trouble paying for medicines?: No Do you have trouble getting transportation to medical appointments?: No Do you have trouble paying your heating and electricity bill?: No Do you have trouble taking care of your child, family member or friend?: No Do you have trouble with day-to-day activities such as bathing, preparing meals, shopping, managing finances, etc.?: No Are you currently unemployed and looking for a job?: No Are you interested in more education?: No Please select the resources that you would like help with: None THRIVE Score: 0 AUDIT C Alcohol Use Questionnaire (AUDIT-C) 1. How often do you have a drink containing alcohol?: Never 3. How often do you have six or more drinks on one occasion?: Never Total Score: 0 LI-7 AMB Questionnaire LI-7 Date LI - 7 assessed: 10/10/24 Feeling nervous, anxious, or on edge: 0 = Not at all Not being able to stop or control worryin = Not at all Worrying too much about different things: 0 = Not at all Trouble relaxin = Not at all Being so restless that it is hard to sit still: 0 = Not at all Becoming easily annoyed or irritable: 0 = Not at all Feeling afraid as if something awful might happen: 0 = Not at all Total LI-7 score (0-4 normal; 5-9 mild; 10-14 moderate; 15-21 severe): 0 Source: Developed by Drs. Yovanny Espino, Leslie Odell, Anders Limon and colleagues, with an educational eben from [employer]. Physical exam (Primary Care) Vital Signs: Last Vital Signs Temp 98.0 F 10/10/24 14:18 Pulse 60 10/10/24 14:18 Resp 14 10/10/24 14:18 BP 130/63 10/10/24 14:18 Pulse Ox 98 10/10/24 14:18 Oxygen Delivery Method Room Air 10/10/24 14:18 Tobacco/Smoking Status: Tobacco use Status Tobacco use date assessed 10/10/24 10/10/24 14:14 Patient Tobacco Use Status Former Tobacco user 10/10/24 14:24 Tobacco use type Pipe 10/10/24 14:24 PHQ-9: PHQ-9 Score PHQ-9: Total score 0 10/13/24 11:06 Depression Screening Interpretation: Negative Thrive Assessment: Date of Thrive Assessment Date Thrive assessed 10/10/24 10/10/24 14:14 Coding Level of Care Code New Pt Level 4 (75515) Complex EM visit Add On G2211 Diagnoses Neuropathy G62.9 Cerebral aneurysm I67.1 Leg heaviness R29.898 Lumbar disc disease M51.9 Additional Codes PHQ-9 - 26917 - PHQ-9 Billing: Yes [id number]) Assessment & Plan Assessment & Plan (1) Neuropathy: Code(s): G62.9 - Polyneuropathy, unspecified Category: Medical (2) Cerebral aneurysm: Code(s): I67.1 - Cerebral aneurysm, nonruptured Category: Medical (3) Leg heaviness: Code(s): R29.898 - Other symptoms and signs involving the musculoskeletal system Category: Medical (4) Lumbar disc disease: Code(s): M51.9 - Unspecified thoracic, thoracolumbar and lumbosacral intervertebral disc disorder Category: Medical Plan 89 year old male to establish care Past medical, surgical, social reviewed Continued issues with balance, falls Labs ordered MRI lumbar spine Orders: Orders MR lumbar spine wo con 10/10/24 M51.9 - Unspecified thoracic, thoracolumbar and lumbosacral intervertebral disc disorder, R26.89 - Other abnormalities of gait and mobility, R29.898 - Other symptoms and signs involving the musculoskeletal system Vitamin B12 and Folate 10/11/24 G62.9 - Polyneuropathy, unspecified, M51.9 - Unspecified thoracic, thoracolumbar and lumbosacral intervertebral disc disorder, R26.89 - Other abnormalities of gait and mobility, R29.898 - Other symptoms and signs involving the musculoskeletal system Hemoglobin A1c 10/11/24 G62.9 - Polyneuropathy, unspecified, M51.9 - Unspecified thoracic, thoracolumbar and lumbosacral intervertebral disc disorder, R26.89 - Other abnormalities of gait and mobility, R29.898 - Other symptoms and signs involving the musculoskeletal system Complete Blood Count Auto Diff 10/11/24 G62.9 - Polyneuropathy, unspecified, M51.9 - Unspecified thoracic, thoracolumbar and lumbosacral intervertebral disc disorder, R26.89 - Other abnormalities of gait and mobility, R29.898 - Other symptoms and signs involving the musculoskeletal system UA CC w/rflx Micro + Cult 10/11/24 G62.9 - Polyneuropathy, unspecified, M51.9 - Unspecified thoracic, thoracolumbar and lumbosacral intervertebral disc disorder, R29.898 - Other symptoms and signs involving the musculoskeletal system Pathologist Review - CBC 10/11/24 G62.9 - Polyneuropathy, unspecified, M51.9 - Unspecified thoracic, thoracolumbar and lumbosacral intervertebral disc disorder, R26.89 - Other abnormalities of gait and mobility, R29.898 - Other symptoms and signs involving the musculoskeletal system MR head/brain w con 10/10/24 G62.9 - Polyneuropathy, unspecified, H93.19 - Tinnitus, unspecified ear, M51.9 - Unspecified thoracic, thoracolumbar and lumbosacral intervertebral disc disorder, R26.89 - Other abnormalities of gait and mobility Basic Metabolic Panel 10/11/24 G62.9 - Polyneuropathy, unspecified, M51.9 - Unspecified thoracic, thoracolumbar and lumbosacral intervertebral disc disorder, R29.898 - Other symptoms and signs involving the musculoskeletal system Referrals Neurosurgery Referral I67.1 - Cerebral aneurysm, nonruptured
[2024-10-10 14:18] VITALS: BP 130/63; PULSE 60; RESP 14; TEMP 36.7; O2SAT 98
--- OUTSIDE RECORDS SUMMARY | 2024-10-10 14:19 | XMS_ITS ---
Author Organization [facility] j[facility]leen [facility] Address [address] [facility] [place] [address] Care Team Providers Care Boiler Repair Supervisor Name Role Phone Josemanuel Vital MD Primary Care Provider Declan Elliott Unavailable [phone] Allergies No Known Allergies REASON FOR VISIT At Risk Footcare, Painful Nail(s) aggravated by shoes and causing difficulty standing/walking. Medications Medication SIG (Take, Route, Fr equency, Duration) Notes Start Date End Date Status Lisinopril 5 MG Orally Acti ve Gabapentin 300 MG as directed Oral Once a day Not-Taking Aspirin 81 MG 1 tablet Orally Once a day for 30 day(s) Not-Taking Social History Tobacco Use: Social History Observation Description Date Details (start date - stop date) Never Smoker NA - NA Tobacco use other than smoking: Question Answer Notes Are you an other tobacco user? No Tobacco Control (Standard) Question Answer Notes Tobacco use: Nonsmoker Additional Findings: Tobacco non-user Current no nsmoker Section Notes: Smokes pipe, claims to not i nhale Vital Signs Height 6 ft in 06/07/2024 Weight 200 lbs 06/07/2024 BMI 27.12 kg/m2 06/07/2024 Blood pressure systolic 120 mm Hg 06/07/19 25 Blood pressure diastolic 80 mm Hg 025 Procedures Procedure Date Ordered Date Performed Result Body Sit e 67358-FGFJQMV NAIL, 6 OR MORE 06/07/2024 N/A 44670-VLNC SKIN LESIONS, OVER 4 06/07/2024 N/A Encounters Encounter Location Date Provider Diagnosis [facility] [address] [facility] [place] [address] 06/07/2024 Declan Burgess Atherosclerosis of [place] artery of both lower extremities, with unspecified presence of clinical manifestation I70.203 ; Tinea unguium B35.1 ; Pain in right toe(s) M79.674 and Pain in left toe(s) M79.675 Assessments Encounter Date Diagnosis (ICD Code) Assessment Notes Treatment Notes Treatment Clinical Notes Section Notes 06/07/2024 Atherosclerosis of [place] artery of both lower extremities, with unspecified presence of clinical manifestation (ICD-10 - I70.203) Q7(A), Q8(2B), Q9(1B,2C) 06/07/2024 Tinea unguium (ICD-10 - B35.1) 06/07/2024 Pain in right toe(s) (ICD-10 - M79.674) 06/07/2024 Pain in left toe(s) (ICD-10 - M79.675) Plan Of Treatment Pending Test Test Name Order Date 57831-DBTGIKO NAIL, 6 OR MORE 06/07/2024 75740-RPXU SKIN LESIONS, OVER 4 06/07/19 25 Next Appt Details Follow Up: prn, Reason: Provider Name:Declan Burgess , 12/06/2024 10:00:00 AM, [address] [place] [address], [place], [address], Procedure Notes * Category Sub-Category Detail Notes Debride Nail 6-10 Nail debridement Due to the cl inical pathology outlined in the exam findings, performance of this nail treatment is medically necessary as its management by an unskilled/untrained nonprofessional would put this patients foot and overall health at risk. Therefore, debridement to affected nail(s), as described in exam ( TA, T2, T3, T4, T5, T6, T7, T9), was performed exclusively by the physician of record to reduce/remove overall nail length, girth, thickness, subungual debris, and necrotic tissue, by manual and/or electrical means through the use of a nail nipper and/or dremel-type thread tool grinder set up operator, to a more viable healthy nail plate or bed tissue 6-10 nails in total. Silver nitrate was used for any petechial bleeding as necessary. Definitive antifungal treatment options, both pharmaceutical and surgical, have been reviewed and discussed with the patient. The patient solely prefers the use of intermittent/as needed professional debridement services for their nail condition and understands the need for additional periodic treatments to maintain effectiveness in symptomatic relief - 91701 Keratoma Treatment Parring or Cutting o f Benign Hyperkeratotic Lesion(s) (-57) More than 4 Lesions - Due to the at risk nature of the patients medical condition as documented in the exam findings, performance of this keratoderma treatment is medically necessary as its management by an unskilled/untrained nonprofessional would put this patients foot and overall health at risk. Therefore, the benign hyperkeratotic lesions, ( 8) in total, locations as stated and described in the exam ( SUB MTH (s), 1, B/L, SUB MTH (s), 2, B/L, SUB MTH (s), 5, B/L, Plantar, Heel(s), B/L), were pared, and/or cut utilizing a sterile 15 blade, tissue nippers, and/or power dremel instrumentation by the physician of record - 23366, Q8 Progress Notes * Yovanny RYAN GDOB: [birth year] (88 yo M)Acc No.[id number]:06/07/2024 Progress Note Patient:?ADALIJHONATANYovanny Provider:?Declan Burgess DPM :1935???Age:88 Y???Sex:Male Ted e:06/07/2024 Address:[address] [place], [place] [id number] Pcp:Josemanuel Vital MD Subjective: * Chief Complaints: * ???At Risk FootcarePainful N ail(s) aggravated by shoes and causing difficulty standing/walking. * HPI: ???At Risk footcare:?Pt States Last PCP Visit:?Date?05/16/2024 * ROS:?General/Constitutional:?Nausea?denies.?Vomiting?denies.?Hunger Thirst?denies.?Loss appetite?denies.?Chills?denies.?Fatigue?denies.?Fever?denies.?Night Sweats?denies.?Unexplained weight loss?denies.?Unexplained weight gain?denies.?HEENTM:?Dentures?denies.?Dizziness?denies.?Glasses/contacts?admits.?Retinopathy?de nies.?Blurred/double vision?denies.?TMJ?denies.?Discharge/drainage?denies.?Implants?denies.?Sore throat?denies.?Dental implants?denies.?Hard of hearing ?denies.?Difficulty chewing/swallowing/speaking?denies.?Nose bleeds?denies.?Sore mouth?denies.?Respiratory:?On Oxygen?denies.?Pneumonia/pleurisy?denies.?Bronchitis?denies.?Emphysema?denies.?C oughing?denies.?Cough blood?denies.?Shortness of breath?denies.?Wheezing?denies.?Cardiovascular:?Pacemaker?denies.?MVP?denies.?WPW?denies.?CHF?denies.?Heart attack?denies.?Septal defect?denies.?Rapid beat?denies.?Chest pain ?denies.?Atrial Fib.?denies.?Murmur/Palpitations?denies.?Gastrointestinal:?Hemorrhoids?denies.?Stomach/Abdominal pain?denies.?Dark blood stool?denies.?Irritable bowel ?denies.?Constipation?denies.?Diarrhea?denies.?Hematology:?Swelling?denies.?Clots?denies.?Varicose Veins?denies.?Bruising?admits, on aspirin.?Bleeding problem?admits, on anticoagulants.?Genitourinary:?Blood urine?denies.?Frequent/Painfu/urination/bladder control?denies.?Kidney stones?denies.?Infection (UTI)?denies.?Nephropathy?denies.?sex trans dis (STD)?denies.?Prostate?denies.?Musculoskeletal:?Hammertoes?admits.?Bunions?denies.?Back Pain?denies.?Muscle Cramps/ Resting?denies.?Muscle cramps / walking?denies.?Generalized aches and pains?denies.?Weakness?denies.?Integ.:?Howe?denies.?Scars?denies.?Corns/calluses?admits.?Ingrown nails?admits.?Painful nails?admits.?Open Sores?denies.?Rashes?denies.?Neurologic:?Difficulty sleeping?denies.?Brain disorder?denies.?Numbness?denies.?Balance trouble?denies.?Confusion?denies.?Fainting/blackouts?denies.?Tingling?denies.?Tr emors?denies.? * Medical History:? * Surgical History:?melanoma e xcision 04/2017back surgery 01/15/21 * Hospitalization/Major Diagno stic Procedure:?Denies Past Hospitalization * Family History:?Mother: dece ased.?Father: .? patient denies family history. * Social History:?Tobacco Use:?Tobacco use other than smoking?Are you an other tobacco user??No ?Tobacco Control (Standard)?Tobacco use:?Nonsmoker ?Additional Findings: Tobacco non-user?Current nonsmoker ???Smokes pipe, claims to not inhale. * Medications:?TakingLisinopri l 5 MG Tablet Orally Taking Lisinopril 5 MG Tablet Orally Not-Taking/PRNAspirin 81 MG Tablet Chewable 1 tablet Orally Once a day Gabapentin 300 MG Capsule as directed Oral Once a day Medication List reviewed and reconciled with the patientNot-Taking/PRN Aspirin 81 MG Tablet Chewable 1 tablet Orally Once a day Not-Taking/PRN Gabapentin 300 MG Capsule as directed Oral Once a day Medication List reviewed and reconciled with the patient * Allergies:?N.K.D.A.yes[Aller gies Verified] Objective: * Vitals:?Ht: 6 ft, Wt: 200, B ME: 27.12, Shoe size: 10.5, BP: 120/80 mm Hg, Wt-k.72 kg. * Examination: ???Vascular: ?DP PULSES (B):?0-1/4, LEFT, 1/4, RIGHT.?PT PULSES (B):? 1/4, B/L.?CAPILLARY FILL TIME:? delayed, all digits, B/L.?TROPHIC CONDITION-TEXTURE/ELASTICITY/TURGOR/HAIR GROWTH (B):? decreased, with sparse to absent hair growth, B/L.?TEMPERTURE GRADIENT (C):? decreased, cool to cool, proximal to distal, B/L.?PIGMENTATION:?rubrous, B/L.?EDEMA (C):?absent, B/L.?CLAUDICATION (C):?denies, B/L.?REST PAIN:?denies, B/L.?Nails: ?NAILS are:?Elongated, overgrown, dystrophic, lytic, greater than 3mm thick, discolored and friable with crumbly malodorous subungual debris, with pain on palpation, TA, T2, T3, T4, T5, T6, T7, T9.?Dermatologic: ?SKIN FINDINGS:? Skin exam reveals Keratotic lesion(s) located at, SUB MTH (s), 1, B/L, SUB MTH (s), 2, B/L, SUB MTH (s), 5, B/L,?Plantar, Heel(s), B/L.? Assessment: * Assessment: 1.?Atherosclerosis of [place] artery of both lower extremities, with unspecified presence of clinical manifestation - I70.203 (Primary)???Notes :Q7(A), Q8(2B), Q9(1B,2C)???2.?Tinea unguium - B35.1???3.?Pain in right toe(s) - M79.674???4.?Pain in left toe(s) - M79.675??? Plan: * Treatment: 2.?Tinea unguium?Procedure: 09685-THJEHGQ NAIL, 6 OR MORE * Procedures:?Debride Nail 6-10:?Nail debridement?Due to the clinical pathology outlined in the exam findings, performance of this nail treatment is medically necessary as its management by an unskilled/untrained nonprofessional would put this patients foot and overall health at risk. Therefore, debridement to affected nail(s), as described in exam (?TA,?T2,?T3,?T4,?T5,?T6,?T7,?T9), was performed exclusively by the physician of record to reduce/remove overall nail length, girth, thickness, subungual debris, and necrotic tissue, by manual and/or electrical means through the use of a nail nipper and/or dremel-type thread tool grinder set up operator, to a more viable healthy nail plate or bed tissue 6- 10 nails in total. Silver nitrate was used for any petechial bleeding as necessary. Definitive antifungal treatment options, both pharmaceutical and surgical, have been reviewed and discussed with the patient. The patient solely prefers the use of intermittent/as needed professional debridement services for their nail condition and understands the need for additional periodic treatments to maintain effectiveness in symptomatic relief - 50217.?Keratoma Treatment:?Parring or Cutting of Benign Hyperkeratotic Lesion(s)?(-57) More than 4 Lesions - Due to the at risk nature of the patients medical condition as documented in the exam findings, performance of this keratoderma treatment is medically necessary as its management by an unskilled/untrained nonprofessional would put this patients foot and overall health at risk. Therefore, the benign hyperkeratotic lesions, ( 8) in total, locations as stated and described in the exam (?SUB MTH (s),?1,?B/L,?SUB MTH (s),?2,?B/L,?SUB MTH (s),?5,?B/L,?Plantar,?Heel(s),?B/L), were pared, and/or cut utilizing a sterile 15 blade, tissue nippers, and/or power dremel instrumentation by the physician of record - 81607, Q8.? * Procedure Codes:?28692 DEBRI DE NAIL, 6 OR MORE, Modifiers: XS 06872 TRIM SKIN LESIONS, OVER 4, Modifiers: XS , Q8 * Follow Up:?prn * Images: * Sign off status: Completed true * Provider:?Declan Burgess DPM Date:?2024 Generated for Danny ceballos/Alysha/Slade on:?10/10/2024 02:19 PM EDT History and Physical Notes * HPI (History of Present Illness) Category Sub-Category Detail Notes Category Not es At Risk footcare Pt States Last PCP Visit: Date: 4 Examination Category Sub-Category Detail Notes Category Not es Dermatologic SKIN FINDINGS: Skin exam reveal s Keratotic lesion(s) located at, SUB MTH (s), 1, B/L, SUB MTH (s), 2, B/L, SUB MTH (s), 5, B/L, Plantar, Heel(s), B/L Vascular DP PULSES (B): 0-1/4, LEFT, 1/4, RIGHT PT PULSES (B): 1/4, B/L CAPILLARY FILL TIME: delayed, all digits , B/L TEMPERTURE GRADIENT (C): decreased, cool to cool, proximal to distal, B/L TROPHIC CONDITION-TEXTURE/ELASTICITY/TURGOR/HAIR GROWTH (B): decreased, with sparse to absent hair gr owth, B/L EDEMA (C): absent, B/L CLAUDICATION (C): denies, B/L REST PAIN: denies, B/L PIGMENTATION: rubrous, B/L Nails NAILS are: Elongated, overg rown, dystrophic, lytic, greater than 3mm thick, discolored and friable with crumbly malodorous subungual debris, with pain on palpation, TA, T2, T3, T4, T5, T6, T7, T9
== END 2024-10-10 15:27 | disposition home or self-care (01) ==
LOC: HO.HMCHD 14:12
PROVIDERS: PCP Internal Medicine; Visit Provider Internal Medicine
DX: G62.9 Polyneuropathy, unspecified (principal); I67.1 Cerebral aneurysm, nonruptured; R29.898 Other symptoms and signs involving the musculoskeletal system; M51.9 Unspecified thoracic, thoracolumbar and lumbosacral intervertebral disc disorder

== ENCOUNTER → 2024-10-10 14:12 | Outpatient (BNVA) | payer MEDICARE, SELFPAY | PROVIDERS: PCP Internal Medicine; Visit Provider Internal Medicine | DX: I10 Essential (primary) hypertension (principal); G62.9 Polyneuropathy, unspecified; I67.1 Cerebral aneurysm, nonruptured; N40.0 Benign prostatic hyperplasia without lower urinary tract symptoms; R29.898 Other symptoms and signs involving the musculoskeletal system; R26.89 Other abnormalities of gait and mobility; M51.9 Unspecified thoracic, thoracolumbar and lumbosacral intervertebral disc disorder | CPT/HCPCS: 96127; 99202 ==

== ENCOUNTER 2024-10-11 13:40 | Outpatient (REF) | payer MEDICARE, SELFPAY ==
--- OUTSIDE RECORDS SUMMARY | 2024-10-11 13:46 | XMS_ITS ---
Author Organization [facility] jayleen [facility] Address [address] [facility] [place] [address] Care Team Providers Care Tie Bucker Name Role Phone Josemanuel Vital MD Primary Care Provider Declan Elliott Unavailable [phone] Allergies No Known Allergies REASON FOR VISIT [...] Ordered Date Performed Result Body Sit e 45165-QAZLKTT NAIL, 6 OR MORE 06/07/2024 N/A 81617-LKRK SKIN LESIONS, OVER 4 06/07/2024 N/A Encounters Encounter Location Date Provider Diagnosis [facility] [address] [place] [address] 06/07/2024 Declan Burgess Atherosclerosis of [place] artery of both lower extremities, with unspecified presence of clinical manifestation I70.203 ; Tinea unguium B35.1 ; Pain in right toe(s) M79.674 and Pain in left toe(s) M79.675 Assessments Encounter Date Diagnosis (ICD Code) Assessment Notes Treatment Notes Treatment Clinical Notes Section Notes 06/07/2024 Atherosclerosis of [place] artery of both lower extremities, with unspecified presence of clinical manifestation (ICD-10 - I70.203) Q7(A), Q8(2B), Q9(1B,2C) 06/07/2024 Tinea unguium (ICD-10 - B35.1) 06/07/2024 Pain in right toe(s) (ICD-10 - M79.674) 06/07/2024 Pain in left toe(s) (ICD-10 - M79.675) Plan Of Treatment Pending Test Test Name Order Date 92107-YNAYSXA NAIL, 6 OR MORE 06/07/2024 19346-JNMM SKIN LESIONS, OVER 4 06/07/19 25 Next Appt Details Follow Up: prn, Reason: Provider Name:Declan Burgess , 12/06/2024 10:00:00 AM, [address] [place] [address], [place], [address], Procedure Notes * Category Sub-Category [...] use of a nail nipper and/or dremel-type eyeglass lens grinder, to a more viable healthy nail plate [...] to maintain effectiveness in symptomatic relief - 81943 Keratoma Treatment Parring or Cutting o f [...] instrumentation by the physician of record - 83629, Q8 Progress Notes * Yovanny RYAN GDOB: [birth year] (88 yo M)Acc No.[id number]:06/07/2024 Progress Note Patient:?ADALIJHONATANYovanny Provider:?Declan Burgess DPM :1935???Age:88 Y???Sex:Male Ted e:06/07/2024 Address:[address] [place], [place] [id number] Pcp:Josemanuel Vital MD Subjective: * Chief Complaints: [...] * Vitals:?Ht: 6 ft, Wt: 200, B IA: 27.12, Shoe size: 10.5, BP: 120/80 mm [...] Heel(s), B/L.? Assessment: * Assessment: 1.?Atherosclerosis of [place] artery of both lower extremities, with unspecified presence of clinical manifestation - I70.203 (Primary)???Notes :Q7(A), Q8(2B), Q9(1B,2C)???2.?Tinea unguium - B35.1???3.?Pain in right toe(s) - M79.674???4.?Pain in left toe(s) - M79.675??? Plan: * Treatment: 2.?Tinea unguium?Procedure: 84770-AHWWZVX NAIL, 6 OR MORE * Procedures:?Debride Nail [...] use of a nail nipper and/or dremel-type eyeglass lens grinder, to a more viable healthy nail plate [...] to maintain effectiveness in symptomatic relief - 83011.?Keratoma Treatment:?Parring or Cutting of Benign Hyperkeratotic Lesion(s)?(-57) [...] instrumentation by the physician of record - 50990, Q8.? * Procedure Codes:?37185 DEBRI DE NAIL, 6 OR MORE, Modifiers: XS 99498 TRIM SKIN LESIONS, OVER 4, Modifiers: XS , Q8 * Follow Up:?prn * Images: * Sign off status: Completed true * Provider:?Declan Burgess DPM Date:?2024 Generated for Danny ceballos/Alysha/Slade on:?10/11/2024 01:46 PM EDT History and Physical Notes * [...]
[2024-10-11 13:53] LABS: MANUAL DIFF FLAG NO
[2024-10-11 16:06] LABS: Basophils Absolute Auto 0.1 X10*3/uL (0.0-0.2); Basophils Percent Auto 0.6 % (0-2); Eosinophils Percent Auto 0.3 % (0-4); Hematocrit 51.1 % (42.0-52.0); Hemoglobin 16.8 g/dl (14.0-18.0); Imm Gran Abs Auto 0.03 X10*3/uL (0.00-0.03); Imm Gran Pct Auto 0.3 % (0.0-0.4); Lymphocytes Absolute Auto 1.3 X10*3/uL (1.2-4.9); Lymphocytes Percent Auto 14.8 % (20-40); Mean Corpuscular HGB Conc 32.9 g/dl (31.0-36.0); Mean Corpuscular Hemoglobin 29.3 pg (27.0-33.0); Mean Corpuscular Volume 89.2 fL (80.0-98.0); Mean Platelet Volume 11.3 fL (9.4-12.4); Monocytes Absolute Auto 1.1 X10*3/uL (0.1-1.2); Monocytes Percent Auto 12.3 % (2-11); Neutrophils Absolute Auto 6.2 x10*3/uL (2.0-8.3); Neutrophils Percent Auto 71.7 % (45-73); Platelet Count 199 X10*3/uL (160-400); Red Blood Count 5.73 X10*6/uL (4.60-5.80); Red Cell Distribution Width 14.5 % (11.0-16.0); White Blood Count 8.7 X10*3/uL (4.8-10.8)
[2024-10-11 16:26] LABS: Appearance Urine Clear; Color Urine Dark Yellow; Glucose Urine UA Negative (Negative); Leukocyte Esterase Urine Trace (Negative); Nitrite Urine Negative (Negative); PH 5.5 (5.0-9.0); UMIC TRIGGER UACC YES; Urine Blood Negative (Negative); Urine Ketones Trace mg/dL (Negative); Urine Protein Negative (Neg-Trace)
[2024-10-11 16:26] LABS: Estimated Average Glucose 117 mg/dL; Hemoglobin A1c % 5.7 % (<6.0)
[2024-10-11 16:29] LABS: Anion Gap 14 (12-20); Blood Urea Nitrogen 28 mg/dL (9-16); Carbon Dioxide 27 mmol/L (22-29); Chloride 104 mmol/L (96-108); Estimated Glomerular Filt Rate > 60; Glucose Random 88 mg/dL (60-115); Potassium 4.4 mmol/L (3.3-5.1); Sodium 141 mmol/L (135-145)
[2024-10-11 16:30] LABS: Bacteria Urine None Seen (None Seen); Hyaline Casts Urine 0-2 /LPF (0-2); RBC Urine 0-2 /HPF (0-2); Squamous Epithelial Cell Urine 0-2 /HPF (0-2); WBC Urine 0-5 /HPF (0-5)
[2024-10-11 17:09] LABS: Folate 15.5 ng/mL (> or = 4.0); Vitamin B12 592 pg/mL (200-900)
== END 2024-10-11 13:41 | disposition home or self-care (01) ==
LOC: HO.LAB 13:40
PROVIDERS: PCP Internal Medicine; Visit Provider Internal Medicine
DX: M51.9 Unspecified thoracic, thoracolumbar and lumbosacral intervertebral disc disorder (principal); R29.898 Other symptoms and signs involving the musculoskeletal system; R26.89 Other abnormalities of gait and mobility; G62.9 Polyneuropathy, unspecified; Z13.1 Encounter for screening for diabetes mellitus
CPT/HCPCS: 80048; 81001; 82607; 82746; 83036; 85025

== ENCOUNTER 2024-11-01 09:54 | Outpatient (REF) | payer MEDICARE, SELFPAY ==
--- NOTE | ~2024-11-01 | MR_ITS ---
EXAMINATION: MR BRAIN/IACS WITHOUT AND WITH CONTRAST CLINICAL INFORMATION: Cerebral aneurysm, nonruptured. COMPARISON: None available. TECHNIQUE: Multiplanar, multisequence MRI of the brain/IACs was obtained before and after the intravenous administration of 10 mL Gadavist. Standard sequences were utilized. Examination performed on a 1.5 Miesha Siemens high-field unit. FINDINGS: IACs: There is normal CSF signal within the IACs, CP angle cisterns, prepontine cistern, and labyrinthine structures. The 7th and 8th cranial nerves are normal in course and caliber. The tympanic cavities and mastoid air cells are normal in signal, with only trace fluid in the mastoid tips bilaterally. The 3rd cranial nerves, 4th cranial nerves, 5th cranial nerves, Meckel's caves, 6th cranial nerves, and 9th cranial nerves have a normal appearance. After the administration of contrast material, no abnormal enhancement is present within the IACs, labyrinthine structures, or involving the major cranial nerves. BRAIN: There is no diffusion restriction. There is no intracranial hemorrhage, acute infarction, mass effect, or edema. Ventricles, sulci, and cisterns are somewhat diffusely prominent, in keeping with age-related cerebral and cerebellar volume loss. No shift of midline. Innumerable tiny perivascular spaces are seen throughout the anterior basal ganglia and gangliocapsular regions (etat crible appearance). This is an unchanged finding. There are a numerous scattered punctate and mildly confluent foci of white matter T2 hyperintensity in the periventricular, subcortical, hemispheric deep white matter, and central marisa. These foci are nonspecific but statistically most likely relate to small vessel ischemic changes. Distribution/morphology is not specific to inflammatory demyelinating disease. Midline structures appear normally formed. The pituitary gland appears normal. Posterior fossa structures appear normal. Cerebellar tonsils are appropriately located. Major flow voids are preserved within the skull base. 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 The globes and orbital contents demonstrate bilateral lens replacements. They are otherwise normal in appearance. Paranasal sinuses are clear bilaterally. Extracranial soft tissues demonstrate no abnormalities. No suspicious bone marrow changes are evident. 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 MR/MR head/brain wo/w con IMPRESSION: 1. There is normal CSF signal within the IACs, CP angle cisterns, prepontine cistern, and labyrinthine structures. The 7th and 8th cranial nerves are normal in course and caliber. No abnormal cranial nerve mass or enhancement is identified. 2. No acute infarction, intracranial hemorrhage, mass effect, or edema. 3. Age-related cerebral and cerebellar volume loss, and moderate to severe changes of small vessel. Innumerable small perivascular spaces (etat crible appearance) in the basal ganglia and anterior gangliocapsular regions. These findings are stable. 4. 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 Aneurysm involving the lateral right cavernous carotid artery is not well seen on this examination. Electronically signed by: Christopher Mello MD 11/01/2024 11:46 AM EDT
--- NOTE | ~2024-11-01 | MR_ITS ---
EXAM: TECHNIQUE: Multiplanar multisequence imaging was performed through the lumbar spine without contrast. INDICATION: Lumbar spine surgery 4 years ago, bilateral leg weakness for 6 months PRIOR: X-ray on November 30, 2020 FINDINGS: 5 non-rib bearing lumbar segments are present on x-ray. Marrow and end-plates: Modic 2 signal changes present at L2-3, mixed Modic 1-2 signal changes present at L4-5. Minimal Modic 2 signal is noted at L5-S1. Alignment: There is minimal grade 1 retrolisthesis at L3-4, L4-5, and L5-S1. Soft tissues: Paraspinal soft tissues and major vascular structures are unremarkable. Conus: The termination of conus medullaris is within normal limits at the level of lower L1. T12-L1: There is no disc bulge, herniation, spinal stenosis, or foraminal narrowing. L1-L2: There is no disc bulge, herniation, spinal stenosis, or foraminal narrowing. L2-L3: There is mild broad-based disc bulge and mild facet arthropathy without spinal stenosis. There is minimal left-sided foraminal narrowing without right-sided narrowing. L3-L4: There is disc desiccation, loss of disc height with circumferential broad-based disc bulge and left subarticular zone and foraminal disc osteophyte complex and small extrusion. There is moderate ligamentum flavum thickening. There is no spinal stenosis. There is mild to moderate left subarticular zone narrowing posteriorly displacing the left L4 nerve root with mild right and dpws-dh-fbrhrtlv left foraminal narrowing. L4-L5: There is moderate loss disc height and superficial broad-based disc bulge with broad posterior extrusion. There is moderate facet arthropathy and trace fluid in the facet joints. There is no spinal stenosis. There is minimal left subarticular zone narrowing and moderate bilateral foraminal narrowing encroaching on the L4 nerve roots. L5-S1: There is disc desiccation and mild loss disc height with circumferential broad-based disc bulge and mild to moderate facet arthropathy, greater on the left. There are endplate osteophytes and small broad posterior extrusion. There is no spinal stenosis. The left S1 nerve root is minimally displaced posteriorly in the subarticular zone. There is severe right and moderate to severe left foraminal narrowing with encroachment of the L5 nerve roots. MR/MR lumbar spine wo con IMPRESSION: L3-L4: There is mild to moderate left subarticular zone narrowing posteriorly displacing the left L4 nerve root with mild right and kzfn-gk-gjzletza left foraminal narrowing. L4-L5: There is minimal left subarticular zone narrowing and moderate bilateral foraminal narrowing encroaching on the L4 nerve roots. L5-S1: The left S1 nerve root is minimally displaced posteriorly in the subarticular zone. There is severe right and moderate to severe left foraminal narrowing with encroachment of the L5 nerve roots. Electronically signed by: Levi Lake MD 11/01/2024 11:42 AM EDT
--- OUTSIDE RECORDS SUMMARY | 2024-11-01 10:39 | XMS_ITS | Patient Health Record ---
Author Organization [facility] Address [address] [place] [address] Care Team Providers Care Steam Powerplant Supervisor Name Role Phone Josemanuel Vital MD Primary Care Provider UnavailYovanny Denny Unavailable [phone] Reason For Referral No Information Plan Of Treatment No Information
[2024-11-01] MEDS: gadobutroL 10 ML VIAL IVPUSH (11:04)
== END 2024-11-01 09:55 | disposition home or self-care (01) ==
LOC: HO.MRI 09:54
PROVIDERS: PCP Internal Medicine; Visit Provider Internal Medicine
DX: M51.9 Unspecified thoracic, thoracolumbar and lumbosacral intervertebral disc disorder (principal); R29.898 Other symptoms and signs involving the musculoskeletal system; R26.89 Other abnormalities of gait and mobility; I67.1 Cerebral aneurysm, nonruptured; H93.19 Tinnitus, unspecified ear; G62.9 Polyneuropathy, unspecified
CPT/HCPCS: 70553; 72148; A9585

== ENCOUNTER → 2024-11-01 10:11 | Outpatient (BNV) | payer MEDICARE, SELFPAY | PROVIDERS: PCP Internal Medicine; Visit Provider Radiology Diagnostic Radiology | DX: G93.89 Other specified disorders of brain (principal); I67.1 Cerebral aneurysm, nonruptured; M99.63 Osseous and subluxation stenosis of intervertebral foramina of lumbar region | CPT/HCPCS: 70553 ==

== ENCOUNTER 2024-12-05 11:32 | Outpatient (AMB) | payer MEDICARE, SELFPAY ==
--- NOTE | 2024-12-05 11:08 | MHC.PC.OV ---
Vital Signs 12/05/24 11:27 Height 6 ft 2 in Weight 200 lb BMI 25.7 BP 110/62 Blood Pressure Location Lt brachial Position Sitting Respiration 16 Pulse 61 Pulse Source Pulse Oximeter Temp 97.3 F Temp Source Temporal Artery Scan Pulse Oximetry (%) 95 Oxygen Delivery Method Room Air Intake Visit Reasons: Routine Slip Sheeter Required: No Accompanied by: Spouse Allergies No Known Allergies (No Known Allergies*) Allergy (Verified 12/05/24 11:21) Tobacco use date assessed: 10/10/24 Dental Screening Dental Screen Date: 10/10/24 HPI HPI Comments History of Present Illness Details The patient is a 88 year old male with a past medical history of hypertension, BPH, balance issues, presenting for follow up. CV: Bp controlled on lisinopril. Denies chest pain, shortness of breath. Ongoing issues with balance. Follows with Dr Marcus-thinks multifactorial. No dizziness/vertigo. Easier to fatigue. 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 There is aneurysm which is stable. He followed up with [facility] neurosurgery will do screening again in one year. He had MR lumbar spine -he is unsure if neurosurgery reviewed at the time of visit. History of lumbar surgery. Legs frequently heavy. Feels uncoordinated. It has been 4 years since he tried PT to help with balance etc-he is willing to try an additional course ROS see HPI PHYSICAL EXAM: GENERAL: Alert and oriented x 3. NAD EYES: EOMI. Anicteric. HENT: Moist mucous membranes. No scleral icterus. No cervical lymphadenopathy. LUNGS: Clear to auscultation bilaterally. CARDIOVASCULAR: Regular rate and rhythm. No murmur. No JVD. ABDOMEN: Soft, non-tender +bs EXTREMITIES: No edema. Non-tender. SKIN: No rashes or lesions. Warm. NEUROLOGIC: No focal neurological deficits. CN II-XII grossly intact PSYCHIATRIC: Cooperative. Appropriate mood and affect [facility] Medical History Hematuria HTN (hypertension) Yeast dermatitis of penis Surgical History History of colonoscopy (~09/29/10) Family History Father No problems noted. Mother No problems noted. Social History Housing: House Unable to assess alcohol history related to: Unknown Alcohol intake: current Alcohol intake frequency: does not drink Patient Tobacco Use Status: Former Tobacco user Tobacco use type: Pipe e-Cigarette/Vaping Use: Never Used service: Yes Current occupational status: retired Cognitive needs: Yes (cane ) Hearing needs: No Vision needs: Yes (rx glassed) Questionnaire Thrive Questionnaire Date Thrive assessed: 10/10/24 LI-7 AMB Questionnaire LI-7 Date LI - 7 assessed: 10/10/24 Source: Developed by Drs. Yovanny Espino, Leslie Odell, Anders Limon and colleagues, with an educational eben from [employer]. Physical exam (Primary Care) Vital Signs: Last Vital Signs Temp 97.3 F 12/05/24 11:27 Pulse 61 12/05/24 11:27 Resp 16 12/05/24 11:27 BP 110/62 12/05/24 11:27 Pulse Ox 95 12/05/24 11:27 Oxygen Delivery Method Room Air 12/05/24 11:27 BMI result Body Mass Index 25.7 Tobacco/Smoking Status: Tobacco use Status Tobacco use date assessed 10/10/24 12/05/24 11:08 Patient Tobacco Use Status Former Tobacco user 12/05/24 11:08 Tobacco use type Pipe 12/05/24 11:08 e-Cigarette/Vaping Use Never Used 12/05/24 11:25 Thrive Assessment: Date of Thrive Assessment Date Thrive assessed 10/10/24 12/05/24 11:08 Coding Level of Care Code Est Pt Level 4 (40071) Diagnoses Leg heaviness R29.898 Cerebral aneurysm I67.1 Lumbar disc disease M51.9 Assessment & Plan Assessment & Plan (1) Leg heaviness: Code(s): R29.898 - Other symptoms and signs involving the musculoskeletal system Category: Medical Plan: will have NS review (2) Cerebral aneurysm: Code(s): I67.1 - Cerebral aneurysm, nonruptured Category: Medical Plan: follow up NS (3) Lumbar disc disease: Code(s): M51.9 - Unspecified thoracic, thoracolumbar and lumbosacral intervertebral disc disorder Category: Medical Plan: refer NS. Plan continues vascular for LE heaviness. Orders: Orders PT Evaluation and Treatment 12/05/24 G62.9 - Polyneuropathy, unspecified, R27.0 - Ataxia, unspecified, R29.898 - Other symptoms and signs involving the musculoskeletal system
[2024-12-05 11:27] VITALS: BP 110/62; PULSE 61; RESP 16; TEMP 36.3; O2SAT 95; BMI 25.7
--- OUTSIDE RECORDS SUMMARY | 2024-12-05 12:22 | XMS_ITS | Patient Health Record ---
Author Organization [facility] [address] Address [address] [place] [address] Care Team Providers Care Rooter Operator Name Role Phone Josemanuel Vital MD Primary Care Provider Phoebea Declan Huff Unavailable [phone] Allergies No Known Allergies Reason For Referral No Information Medications Medication SIG (Take, Route, Fr equency, Duration) Notes Start Date End Date Status Lisinopril 5 MG Orally Acti ve Aspirin 81 MG 1 tablet Orally Once a day; Duration: 30 day(s) Not-Taking Gabapentin 300 MG as directed Oral Once a day Not-Taking Immunizations Vaccine Route Administration Date Status Comme nts COVID-19 Pfizer BioNTech Vaccine Unknown 03/15/2021 Administered 1st 06/28/2020 2nd 07/20/2020 Influenza Unknown 03/19/2021 Refused Social History Tobacco Use: Social History Observation Description Date Details (start date - stop date) Never Smoker NA - NA Alcohol Screen Question Answer Notes Did you have a drink containing alcohol in the p ast year? No Points 0 Interpretation Negative Tobacco use other than smoking: Question Answer Notes Are you an other tobacco user? No Tobacco Control (Standard) Question Answer Notes Tobacco use: Nonsmoker Additional Findings: Tobacco non-user Current no nsmoker Section Notes: Smokes pipe, claims to not i nhale Smokes pipe, claims to not i nhale Problems Problem Type SNOMED Code ICD Code Onset Dates Problem Status W/U Status Risk Notes Problem Bilateral atherosclerosis of arteries of lower limbs (disorder) ([id number] ) Atherosclerosis of [place] artery of both lower extremities, with unspecified presence of clinical manifestation (I70.203) Active confirmed Q7(A), Q8(2B), Q9(1B,2 C) Vital Signs Blood pressure diastolic 80 mm Hg 08/30/2024 Height 6 ft in 08/30/2024 Blood pressure systolic 120 mm Hg 08/30/2024 Weight 200 lbs 08/30/2024 BMI 27.12 kg/m2 08/30/2024 Procedures Procedure Date Ordered Date Performed Result Body Sit e 77151-XMOQPVF NAIL, 6 OR MORE 12/15/2023 N/A 07536-HKOK SKIN LESIONS, OVER 4 12/15/2023 N/A 83580-NJYYHVE NAIL, 6 OR MORE 03/12/2024 N/A 38373-Fdifpxer Plate 03/12/2024 N/A 24174-AWCF SKIN LESIONS, OVER 4 03/12/2024 N/A 22622-CLEGZHV NAIL, 6 OR MORE 06/07/2024 N/A 25099-XBYC SKIN LESIONS, OVER 4 06/07/2024 N/A 98026-THGWRVE NAIL, 6 OR MORE 08/30/2024 N/A 73511-KUPC SKIN LESIONS, OVER 4 08/30/2024 N/A Encounters Encounter Location Date Provider Diagnosis [address] [address] 12/15/2023 Declan Archuletaunier Atherosclerosis of [place] artery of both lower extremities, with unspecified presence of clinical manifestation I70.203 ; Tinea unguium B35.1 ; Pain in right toe(s) M79.674 and Pain in left toe(s) M79.[address] [address] 03/12/2024 Declan Aditya Atherosclerosis of [place] artery of both lower extremities, with unspecified presence of clinical manifestation I70.203 ; Tinea unguium B35.1 ; Pain in right toe(s) M79.674 ; Pain in left toe(s) M79.675 and Ingrown nail L60.[address] [address] 06/07/2024 Declan Aditya Atherosclerosis of [place] artery of both lower extremities, with unspecified presence of clinical manifestation I70.203 ; Tinea unguium B35.1 ; Pain in right toe(s) M79.674 and Pain in left toe(s) M79.675 [facility] [place] [address] [place] [address] 08/30/2024 Declan Archuletaunier Atherosclerosis of [place] artery of both lower extremities, with unspecified presence of clinical manifestation I70.203 ; Tinea unguium B35.1 ; Pain in right toe(s) M79.674 and Pain in left toe(s) M79.675 Assessments Encounter Date Diagnosis (ICD Code) Assessment Notes Treatment Notes Treatment Clinical Notes Section Notes 12/15/2023 Tinea unguium (ICD-10 - B35.1) 12/15/2023 Atherosclerosis of [place] artery of both lower extremities, with unspecified presence of clinical manifestation (ICD-10 - I70.203) 03/12/2024 Tinea unguium (ICD-10 - B35.1) 03/12/2024 Atherosclerosis of [place] artery of both lower extremities, with unspecified presence of clinical manifestation (ICD-10 - I70.203) 06/07/2024 Atherosclerosis of [place] artery of both lower extremities, with unspecified presence of clinical manifestation (ICD-10 - I70.203) Q7(A), Q8(2B), Q9(1B,2C) 08/30/2024 Tinea unguium (ICD-10 - B35.1) 08/30/2024 Atherosclerosis of [place] artery of both lower extremities, with unspecified presence of clinical manifestation (ICD-10 - I70.203) Q7(A), Q8(2B), Q9(1B,2C) 08/30/2024 Pain in right toe(s) (ICD-10 - M79.674) 06/07/2024 Tinea unguium (ICD-10 - B35.1) 03/12/2024 Pain in right toe(s) (ICD-10 - M79.674) 12/15/2023 Pain in right toe(s) (ICD-10 - M79.674) 12/15/2023 Pain in left toe(s) (ICD-10 - M79.675) 03/12/2024 Pain in left toe(s) (ICD-10 - M79.675) 06/07/2024 Pain in right toe(s) (ICD-10 - M79.674) 08/30/2024 Pain in left toe(s) (ICD-10 - M79.675) 03/12/2024 Ingrown nail (ICD-10 - L60.0) 06/07/2024 Pain in left toe(s) (ICD-10 - M79.675) Plan Of Treatment Pending Test Test Name Order Date 84653-BTYEQEW NAIL, 6 OR MORE 04/12/2011 29733-AYZOAPJ NAIL, 6 OR MORE 07/08/2011 65955-FWIXAKH NAIL, 6 OR MORE 12/09/2011 65166-GUSIDDK NAIL, 6 OR MORE 03/20/2012 79213-UFVMULO NAIL, 6 OR MORE 06/19/2012 66430-IZLXRFL NAIL, 6 OR MORE 09/25/2012 85023-AQNRGXE NAIL, 6 OR MORE 09/13/2013 79980-AZFQTTK NAIL, 6 OR MORE 12/13/2013 87524-FTKZLDP NAIL, 6 OR MORE 03/21/2014 23988-YWPFPUN NAIL, 6 OR MORE 06/27/2014 63107-UGEAGSA NAIL, 6 OR MORE 10/17/2014 02227-VSFZIVY NAIL, 6 OR MORE 04/24/2015 01940-HISRQZU NAIL, 6 OR MORE 08/18/2015 09944-SDMPZVV NAIL, 6 OR MORE 11/17/2015 32766-BDCHZTJ NAIL, 6 OR MORE 02/19/2016 40376-IIFPNZM NAIL, 6 OR MORE 05/27/2016 44658-UAAGFMG NAIL, 6 OR MORE 08/26/2016 98247-TFOENTK NAIL, 6 OR MORE 12/02/2016 14859-MTSKZMP NAIL, 6 OR MORE 03/03/2017 71922-KSZVFKU NAIL, 6 OR MORE 06/09/2017 92321-PCCXWNW NAIL, 6 OR MORE 09/08/2017 27154-AUGKZVT NAIL, 6 OR MORE 12/22/2017 12104-RKFCKJG NAIL, 6 OR MORE 03/23/2018 29801-MYYNZLK NAIL, 6 OR MORE 07/06/2018 35914-BRLBBRI NAIL, 6 OR MORE 10/09/2018 79718-LQBWCNH NAIL, 6 OR MORE 02/19/2019 72477-SWJXRCY NAIL, 6 OR MORE 04/26/2019 98737-WULJRAE NAIL, 6 OR MORE 07/12/2019 63183-KDDORIH NAIL, 6 OR MORE 10/18/2019 33594-UKLLSTP NAIL, 6 OR MORE 12/31/2019 58781-YDUIKDK NAIL, 6 OR MORE 04/21/2020 30191-HKTVAIU NAIL, 6 OR MORE 07/14/2020 12677-QMFRTCZ NAIL, 6 OR MORE 09/22/2020 59063-LWPBTOW NAIL, 6 OR MORE 03/19/2021 57598-KFTVTFJ NAIL, 6 OR MORE 06/04/2021 74981-KWGSUUK NAIL, 6 OR MORE 08/27/2021 05722-PXUDEZS NAIL, 6 OR MORE 11/12/2021 85234-TVFCQFE NAIL, 6 OR MORE 01/28/2022 72043-JOSMEZP NAIL, 6 OR MORE 04/08/2022 37200-LPCEPSQ NAIL, 6 OR MORE 01/02/2015 10968-RKGCIMH NAIL, 6 OR MORE 06/10/2022 79345-EUWAECO NAIL, 6 OR MORE 09/20/2022 08097-EWOBWVF NAIL, 6 OR MORE 12/23/2022 05797-JOJTIRN NAIL, 6 OR MORE 04/04/2023 78649-ZGYKDNM NAIL, 6 OR MORE 07/07/2023 27628-LVEPEUZ NAIL, 6 OR MORE 12/15/2023 94087-OKOCTQX NAIL, 6 OR MORE 03/12/2024 22321-JVNSHVC NAIL, 6 OR MORE 06/07/2024 43880-XRNWYGP NAIL, 6 OR MORE 08/30/2024 54669-LOMDYCP NAIL, 6 OR MORE 12/15/2020 02249-Eutttatt Plate 03/12/2024 61436-Qmfukxdx Plate 07/07/2023 57866- Debride <25 sq cm 01/02/2015 69943- Debride <25 sq cm 04/21/2020 24775- Debride <25 sq cm 10/17/2014 00725- Debride <25 sq cm 06/27/2014 95892- Debride <25 sq cm 03/21/2014 65250- Debride <25 sq cm 12/13/2013 04973- Debride <25 sq cm 09/13/2013 97913-RUKL SKIN LESIONS, OVER 4 07/07/19 24 05583-MEHA SKIN LESIONS, OVER 4 03/12/20 24 98474-YCXJ SKIN LESIONS, OVER 4 12/15/19 24 80364-FZSE SKIN LESIONS, OVER 4 08/31/19 25 02095-RWQS SKIN LESIONS, OVER 4 06/07/19 25 91455-KAXD SKIN LESIONS, 2 TO 4 04/04/20 23 93428-HBJU SKIN LESIONS, 2 TO 4 06/10/19 23 52632-ACGW SKIN LESIONS, 2 TO 4 12/24/19 23 01241-ITXW SKIN LESIONS, 2 TO 4 09/21/19 23 52579-ZHLF SKIN LESIONS, 2 TO 4 04/08/20 22 51405-Yfls. Subungual Hematoma Next Appt Details Provider Name:Declan Bonilla Aditya , 12/06/2024 10:00:00 AM, [address] [place], [address], Insurance Providers Payer Name Payer Address Payer Phone Subscriber Number Group Number Insured Name Patient Relationship to Insured Coverage Start Date Coverage End Date Medicare National Govt Sv[employer] [address] [place] [address] [id number] Yovanny Tiwari Self - patient is the insured [employer] [address] [place] [address] [id number] Yovanny Tiwari Self - patient is the insured Medical (General) History Medical History History ICD Code hypertension measles Surgical History Surgery Date(Month/Year) melanoma excision 04/2017 back surgery 01/15/21
--- OUTSIDE RECORDS SUMMARY | 2024-12-05 12:22 | XMS_ITS | Patient Health Record ---
Author Organization [facility] Address [address] [place] [address] Care Team Providers Care Mobile Engineer Name Role Phone Amanuel (RETIRED) Josemanuel CLARKE Primary Care Provide r Unavailable Drew Phelan Unavailable [phone] Reason For Referral No Information Plan Of Treatment No Information
== END 2024-12-05 11:59 | disposition home or self-care (01) ==
LOC: HO.HMCHD 11:32
PROVIDERS: PCP Internal Medicine; Visit Provider Internal Medicine
DX: R29.898 Other symptoms and signs involving the musculoskeletal system (principal); I67.1 Cerebral aneurysm, nonruptured; M51.9 Unspecified thoracic, thoracolumbar and lumbosacral intervertebral disc disorder

== ENCOUNTER → 2024-12-05 11:32 | Outpatient (BNVA) | payer MEDICARE, SELFPAY | PROVIDERS: PCP Internal Medicine; Visit Provider Internal Medicine | DX: R29.898 Other symptoms and signs involving the musculoskeletal system (principal); I67.1 Cerebral aneurysm, nonruptured; M51.9 Unspecified thoracic, thoracolumbar and lumbosacral intervertebral disc disorder; I10 Essential (primary) hypertension; Z79.899 Other long term (current) drug therapy | CPT/HCPCS: 99212 ==

== ENCOUNTER 2025-01-16 16:04 | Outpatient (AMB) | payer MEDICARE, SELFPAY ==
--- OUTSIDE RECORDS SUMMARY | 2020-10-12 | XMS_ITS | Encounter Summary ---
Author Organization [facility] Address [address] [place] [address] [place] [address] Phone Care Team Providers Care Rag Cutting Machine Feeder Name Role Phone Unavailable Primary Care Provider Unavailabl e Encounter Details Date Type Department Care Team (Late st Contact Info) Description 10/12/2020 Hospital Encounter [facility] OUTSIDE [address] [place] [address] Fei Monsalve MD [address] [place] [phone] [email or web address] [email or web address] Social History Tobacco Use Types Packs/Day Years [...] with a working camera? Not on file Comments Unknown Sex and Gender Information Value Date Recorded Sex Assigned at Choose not to disclose 1:57 PM EDT Legal Sex Male 3:06 PM EDT Gender [...] It is not the complete legal health record.[facility]
--- OUTSIDE RECORDS SUMMARY | 2021-06-15 01:00 | XMS_ITS | Encounter Summary ---
Author Organization [facility] Address [address] [place] [address] [place] [address] Phone Care Team Providers Care Derrick Builder Name Role Phone Unavailable Primary Care Provider Unavailabl e Encounter Details Date Type Department Care Team (Late st Contact Info) Description 06/15/2021 Hospital Encounter [facility] IMG OUTSIDE [address] [place] [address] 54655 Fei Monsalve MD [address] [place] [address] [email or web address] Social History Tobacco Use Types Packs/Day Years [...] It is not the complete legal health record.[facility]
--- OUTSIDE RECORDS SUMMARY | 2022-08-26 | XMS_ITS | Encounter Summary ---
Author Organization [facility] Address [address] [place] [address] [place] [address] Phone Care Team Providers Care Program Control Analyst Name Role Phone Unavailable Primary Care Provider Unavailabl e Encounter Details Date Type Department Care Team (Late st Contact Info) Description 08/26/2022 Hospital Encounter [facility] IMG OUTSIDE [address] [place] [address] [phone] Fei Monsalve MD [address] [place] [phone] [email or web address] Social History Tobacco Use Types Packs/Day Years [...] is not the complete legal health record.[facility]
--- OUTSIDE RECORDS SUMMARY | 2022-08-26 00:05 | XMS_ITS | Encounter Summary ---
Author Organization [facility] Address [address] [place] [address] [place] [address] Phone Care Team Providers Care Oil Pipe Inspector Name Role Phone Unavailable Primary Care Provider Unavailabl e Encounter Details Date Type Department Care Team (Late st Contact Info) Description 08/26/2022 12:05 AM EDT Hospital Encounter [facility] IMG OUTSIDE [address] [place] [phone] Fei Monsalve MD [address] [place] [phone] [email or web address] Social History Tobacco Use Types Packs/Day [...]
[2025-01-16 16:12] VITALS: BP 120/80; PULSE 56; TEMP 36.4; O2SAT 98; BMI 25.3
--- NOTE | 2025-01-16 16:12 | MHC.PC.OV ---
Vital Signs 01/16/25 16:12 Height 6 ft 2 in Weight 197 lb BMI 25.3 BP 120/80 Blood Pressure Location Lt brachial Position Sitting Pulse 56 Pulse Source Pulse Oximeter Temp 97.6 F Temp Source Axillary Pulse Oximetry (%) 98 Oxygen Delivery Method Room Air Intake Visit Reasons: routine [employer] Consultant Required: No Accompanied by: Self / Same As Patient Allergies No Known Allergies (No Known Allergies*) Allergy (Verified 01/16/25 16:13) Tobacco use date assessed: 01/16/25 Fall risk assessment: No Falls in past year Last assessed Fall Risk: 01/16/25 Dental Screening Dental Screen Date: 01/16/25 Did you have a dental visit in the last 12 months?: Yes Did you have a dental problem in the last 6 months where you did not have access to dental care?: No HPI HPI Comments History of Present Illness Details The patient is a 89 year old male with a past medical history of hypertension, BPH, balance issues, presenting for follow up. CV: BP controlled on lisinopril. Denies chest pain, shortness of breath. Neuro: Ongoing issues with balance. Follows with Dr Marcus-believed to be multifactorial. No dizziness/vertigo. Easier to fatigue. 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 There is aneurysm which is stable. He followed up with [facility] neurosurgery will do screening again in one year. He had MR lumbar spine MSK: Leg heaviness-saw Dr Allan neurosurgery for review MRI lumbar spine-december 26. Non surgical. Follows with [facility]. He has some right sided reflux. Has worn compression socks. He is unsure if these were helpful ROS see HPI PHYSICAL EXAM: GENERAL: Alert and oriented x 3. NAD EYES: EOMI. Anicteric. HENT: Moist mucous membranes. No scleral icterus. LUNGS: Clear to auscultation bilaterally. CARDIOVASCULAR: Regular rate and rhythm. ABDOMEN: Soft, non-tender +bs EXTREMITIES: No edema. Non-tender. SKIN: No rashes or lesions. Warm. NEUROLOGIC: No focal neurological deficits. CN II-XII grossly intact PSYCHIATRIC: Cooperative. Appropriate mood and affect [facility] Medical History Hematuria HTN (hypertension) Yeast dermatitis of penis Surgical History History of colonoscopy (~09/29/10) Family History Father No problems noted. Mother No problems noted. Social History Housing: House Unable to assess alcohol history related to: Unknown Alcohol intake: current Alcohol intake frequency: does not drink Patient Tobacco Use Status: Former Tobacco user Tobacco use type: Pipe e-Cigarette/Vaping Use: Former Use service: Yes Current occupational status: retired Cognitive needs: Yes (cane ) Hearing needs: No Vision needs: Yes (rx glassed) Questionnaire PHQ-9 Over the last 2 weeks, how often have you been bothered by any of the following problems? 1. Little interest or pleasure in doing things: not at all 2. Feeling down, depressed, or hopeless: not at all 3. Trouble falling or staying asleep, or sleeping too much: not at all 4. Feeling tired or having little energy: not at all 5. Poor appetite or overeating: not at all 6. Feeling bad about yourself - or that you are a failure or have let yourself or your family down: not at all 7. Trouble concentrating on things, such as reading the newspaper or watching television: not at all 8. Moving or speaking so slowly that other people could have noticed. Or the opposite - being so fidgety or restless that you have been moving around a lot more than usual: not at all 9. Thoughts that you would be better off or of hurting yourself in some way: not at all Total score: 0 Source: Developed by Drs. Yovanny Espino, Leslie Odell, Anders Limon and colleagues, with an educational eben from [employer]. Thrive Questionnaire Date Thrive assessed: 01/16/25 I am a: Patient Within the past 12 months, did the food you bought not last and you didn't have the money to get more?: Never true Within the past 12 months, did you worry whether your food would run out before you got money to buy more?: Never true Do you have trouble paying for medicines?: No Do you have trouble getting transportation to medical appointments?: No Do you have trouble paying your heating and electricity bill?: No Do you have trouble taking care of your child, family member or friend?: No Do you have trouble with day-to-day activities such as bathing, preparing meals, shopping, managing finances, etc.?: No Are you currently unemployed and looking for a job?: No Are you interested in more education?: No THRIVE Score: 0 AUDIT C Alcohol Use Questionnaire (AUDIT-C) 1. How often do you have a drink containing alcohol?: Never 3. How often do you have six or more drinks on one occasion?: Never Total Score: 0 LI-7 AMB Questionnaire LI-7 Date LI - 7 assessed: 01/16/25 Feeling nervous, anxious, or on edge: 0 = Not at all Not being able to stop or control worryin = Not at all Worrying too much about different things: 0 = Not at all Trouble relaxin = Not at all Being so restless that it is hard to sit still: 0 = Not at all Becoming easily annoyed or irritable: 0 = Not at all Feeling afraid as if something awful might happen: 0 = Not at all Total LI-7 score (0-4 normal; 5-9 mild; 10-14 moderate; 15-21 severe): 0 Source: Developed by Drs. Yovanny Espino, Leslie Odell, Anders Limon and colleagues, with an educational eben from [employer]. Physical exam (Primary Care) Vital Signs: Last Vital Signs Temp 97.6 F 01/16/25 16:12 Pulse 56 01/16/25 16:12 BP 120/80 01/16/25 16:12 Pulse Ox 98 01/16/25 16:12 Oxygen Delivery Method Room Air 01/16/25 16:12 BMI result Body Mass Index 25.3 Tobacco/Smoking Status: Tobacco use Status Tobacco use date assessed 01/16/25 01/16/25 16:14 Patient Tobacco Use Status Former Tobacco user 01/16/25 16:14 Tobacco use type Pipe 01/16/25 16:14 e-Cigarette/Vaping Use Former Use 01/16/25 16:24 PHQ-9: PHQ-9 Score PHQ-9: Total score 0 01/18/25 08:45 Thrive Assessment: Date of Thrive Assessment Date Thrive assessed 01/16/25 01/16/25 16:14 Coding Level of Care Code Est Pt Level 3 (46915) Diagnoses Lumbar disc disease M51.9 Cerebral aneurysm I67.1 Balance disorder R26.89 Assessment & Plan Assessment & Plan (1) Lumbar disc disease: Code(s): M51.9 - Unspecified thoracic, thoracolumbar and lumbosacral intervertebral disc disorder Category: Medical (2) Cerebral aneurysm: Code(s): I67.1 - Cerebral aneurysm, nonruptured Category: Medical (3) Balance disorder: Code(s): R26.89 - Other abnormalities of gait and mobility Category: Medical Plan 89 year old with ongoing balance, coordination issues which frustrate him. He continues follow up with neurology. These issues are thought to be multifactorial. Urged patient to repeat PT course. HTN is well controlled on lisinopril.
--- OUTSIDE RECORDS SUMMARY | 2025-01-16 16:19 | XMS_ITS | Patient Health Record ---
Author Organization [facility] Amado jayleen [address] Address [address] [place] [address] Care Team Providers Care Practice Performance Manager Name Role Phone Smita, Hermila Primary Care Provider Declan Reddy Unavailable [phone] Allergies No Known Allergies Reason For Referral No Information Medications Medication SIG (Take, Route, Fr equency, Duration) Notes Start Date End Date Status Aspirin 81 MG 1 tablet Orally Once a day; Duration: 30 day(s) Not-Taking Gabapentin 300 MG as directed Oral Once a day Not-Taking Lisinopril 5 MG Orally Acti ve Immunizations Vaccine Route Administration Date Status Comme nts Influenza Unknown 03/19/2021 Refused Influenza Unknown 12/06/2024 Refused COVID-19 Pfizer BioNTech Vaccine Unknown 03/15/2021 Administered 1st 06/28/2020 2nd 07/20/2020 Social History Tobacco Use: Social History Observation Description Date Details (start date - stop date) Never Smoker NA - NA Tobacco use other than smoking: Question Answer Notes Are you an other tobacco user? No Tobacco Control (Standard) Question Answer Notes Tobacco use: Nonsmoker Additional Findings: Tobacco non-user Current no nsmoker AUDIT-C (Standard) Question Answer Notes Did you have a drink containing alcohol in the p ast year? No Points 0 Interpretation Negative Section Notes: Smokes pipe, claims to not i nhale Smokes pipe, claims to not i nhale Smokes pipe, claims to not i nhale Problems Problem Type SNOMED Code ICD Code Onset Dates Problem Status W/U Status Risk Notes Problem Bilateral atherosclerosis of arteries of lower limbs (disorder) ([id number] ) Atherosclerosis of shawnee artery of both lower extremities, with unspecified presence of clinical manifestation (I70.203) Active confirmed Q7(A), Q8(2B), Q9(1B,2 C) Vital Signs Blood pressure diastolic 65 mm Hg 12/06/2024 Height 6 ft in 12/06/2024 Blood pressure systolic 130 mm Hg 12/06/2024 Weight 200 lbs 12/06/2024 BMI 27.12 kg/m2 12/06/2024 Procedures Procedure Date Ordered Date Performed Result Body Sit e 43533-UBFLXMY NAIL, 6 OR MORE 03/12/2024 N/A 26253-Iqlahkva Plate 03/12/2024 N/A 12685-NCXP SKIN LESIONS, OVER 4 03/12/2024 N/A 92191-LDWXXTE NAIL, 6 OR MORE 06/07/2024 N/A 56166-QEWC SKIN LESIONS, OVER 4 06/07/2024 N/A 06922-VITFFAL NAIL, 6 OR MORE 08/30/2024 N/A 04440-FRRM SKIN LESIONS, OVER 4 08/30/2024 N/A 08322-HBVAPZX NAIL, 6 OR MORE 12/06/2024 N/A 16483-RZKO SKIN LESIONS, OVER 4 12/06/2024 N/A Encounters Encounter Location Date Provider Diagnosis [address] [address] 03/12/2024 Declan Aditya Atherosclerosis of shawnee artery of both lower extremities, with unspecified presence of clinical manifestation I70.203 ; Tinea unguium B35.1 ; Pain in right toe(s) M79.674 ; Pain in left toe(s) M79.675 and Ingrown nail L60.[address] [address] 06/07/2024 Declan Aditya Atherosclerosis of shawnee artery of both lower extremities, with unspecified presence of clinical manifestation I70.203 ; Tinea unguium B35.1 ; Pain in right toe(s) M79.674 and Pain in left toe(s) M79.[address] [address] 08/30/2024 Declan Aditya Atherosclerosis of shawnee artery of both lower extremities, with unspecified presence of clinical manifestation I70.203 ; Tinea unguium B35.1 ; Pain in right toe(s) M79.674 and Pain in left toe(s) M79.675 [facility] [place] [address] [place] [address] 12/06/2024 Declan Burgess Atherosclerosis of shawnee artery of both lower extremities, with unspecified presence of clinical manifestation I70.203 ; Tinea unguium B35.1 ; Pain in right toe(s) M79.674 and Pain in left toe(s) M79.675 Assessments Encounter Date Diagnosis (ICD Code) Assessment Notes Treatment Notes Treatment Clinical Notes Section Notes 03/12/2024 Tinea unguium (ICD-10 - B35.1) 03/12/2024 Atherosclerosis of shawnee artery of both lower extremities, with unspecified presence of clinical manifestation (ICD-10 - I70.203) 06/07/2024 Atherosclerosis of shawnee artery of both lower extremities, with unspecified presence of clinical manifestation (ICD-10 - I70.203) Q7(A), Q8(2B), Q9(1B,2C) 08/30/2024 Tinea unguium (ICD-10 - B35.1) 08/30/2024 Atherosclerosis of shawnee artery of both lower extremities, with unspecified presence of clinical manifestation (ICD-10 - I70.203) Q7(A), Q8(2B), Q9(1B,2C) 12/06/2024 Tinea unguium (ICD-10 - B35.1) 12/06/2024 Atherosclerosis of shawnee artery of both lower extremities, with unspecified presence of clinical manifestation (ICD-10 - I70.203) Q7(A), Q8(2B), Q9(1B,2C) 12/06/2024 Pain in right toe(s) (ICD-10 - M79.674) 08/30/2024 Pain in right toe(s) (ICD-10 - M79.674) 06/07/2024 Tinea unguium (ICD-10 - B35.1) 03/12/2024 Pain in right toe(s) (ICD-10 - M79.674) 03/12/2024 Pain in left toe(s) (ICD-10 - M79.675) 06/07/2024 Pain in right toe(s) (ICD-10 - M79.674) 08/30/2024 Pain in left toe(s) (ICD-10 - M79.675) 12/06/2024 Pain in left toe(s) (ICD-10 - M79.675) 03/12/2024 Ingrown nail (ICD-10 - L60.0) 06/07/2024 Pain in left toe(s) (ICD-10 - M79.675) Plan Of Treatment Pending Test Test Name Order Date 88832-GSXCPYX NAIL, 6 OR MORE 04/12/2011 96858-UKHBNCI NAIL, 6 OR MORE 07/08/2011 31314-BAOGWHY NAIL, 6 OR MORE 12/09/2011 18767-WSURWGL NAIL, 6 OR MORE 03/20/2012 10627-VSQFCKV NAIL, 6 OR MORE 06/19/2012 80421-WMUWZER NAIL, 6 OR MORE 09/25/2012 40846-MMHKXQN NAIL, 6 OR MORE 09/13/2013 51602-RBQDQER NAIL, 6 OR MORE 12/13/2013 29478-OBSHHEF NAIL, 6 OR MORE 03/21/2014 47305-DHEUZEJ NAIL, 6 OR MORE 06/27/2014 04334-MXCHBKY NAIL, 6 OR MORE 10/17/2014 79765-WIRVCZA NAIL, 6 OR MORE 04/24/2015 49617-BSWUEWE NAIL, 6 OR MORE 08/18/2015 88049-DVPGUHI NAIL, 6 OR MORE 11/17/2015 87802-NWETNXI NAIL, 6 OR MORE 02/19/2016 39477-WNUAHQK NAIL, 6 OR MORE 05/27/2016 37274-PKVLIBV NAIL, 6 OR MORE 08/26/2016 83104-HIKSTPO NAIL, 6 OR MORE 12/02/2016 35764-MZJAICF NAIL, 6 OR MORE 03/03/2017 50362-LFFBNCH NAIL, 6 OR MORE 06/09/2017 46811-UEMAZXV NAIL, 6 OR MORE 09/08/2017 08122-YSGHAQF NAIL, 6 OR MORE 12/22/2017 05229-ROQMFER NAIL, 6 OR MORE 03/23/2018 95364-BEOWVZH NAIL, 6 OR MORE 07/06/2018 84244-GHTSANP NAIL, 6 OR MORE 10/09/2018 51411-XTSTTTO NAIL, 6 OR MORE 02/19/2019 44450-KWKOWHD NAIL, 6 OR MORE 04/26/2019 68763-NHOEOTR NAIL, 6 OR MORE 07/12/2019 14607-SGHWTOV NAIL, 6 OR MORE 10/18/2019 68983-SNXSIPN NAIL, 6 OR MORE 12/31/2019 36401-TVUGNCP NAIL, 6 OR MORE 04/21/2020 32832-DIJJRFP NAIL, 6 OR MORE 07/14/2020 40923-GUTBBYC NAIL, 6 OR MORE 09/22/2020 14036-AVWNZTQ NAIL, 6 OR MORE 12/15/2020 83390-KJWLJHG NAIL, 6 OR MORE 03/19/2021 08764-WUCBXJI NAIL, 6 OR MORE 06/04/2021 79617-CAYCFCK NAIL, 6 OR MORE 08/27/2021 35429-BJGJKGE NAIL, 6 OR MORE 11/12/2021 90839-DMSBVED NAIL, 6 OR MORE 01/28/2022 35639-TXBQESZ NAIL, 6 OR MORE 04/08/2022 71210-FCELURF NAIL, 6 OR MORE 01/02/2015 02653-OJVUHYK NAIL, 6 OR MORE 06/10/2022 91806-LBYHNKF NAIL, 6 OR MORE 09/20/2022 50161-QSSPVJW NAIL, 6 OR MORE 12/23/2022 12306-CGRBRCW NAIL, 6 OR MORE 04/04/2023 75441-IYBQTDZ NAIL, 6 OR MORE 07/07/2023 63526-IODCMMS NAIL, 6 OR MORE 12/15/2023 52179-CBNUYTJ NAIL, 6 OR MORE 03/12/2024 91335-DMPOJKA NAIL, 6 OR MORE 06/07/2024 97525-VRUUSNQ NAIL, 6 OR MORE 08/30/2024 20383-WMZLMVA NAIL, 6 OR MORE 12/06/2024 64769-Azvazgsi Plate 03/12/2024 68615-Lspsxqqg Plate 07/07/2023 01602- Debride <25 sq cm 01/02/2015 78769- Debride <25 sq cm 04/21/2020 26279- Debride <25 sq cm 10/17/2014 39033- Debride <25 sq cm 06/27/2014 15502- Debride <25 sq cm 03/21/2014 84421- Debride <25 sq cm 12/13/2013 51735- Debride <25 sq cm 09/13/2013 73149-QVDC SKIN LESIONS, OVER 4 07/07/19 24 56833-NGLD SKIN LESIONS, OVER 4 03/12/20 28084-JRZO SKIN LESIONS, OVER 4 12/15/19 61956-ZJJZ SKIN LESIONS, OVER 4 12/07/19 07163-NSZV SKIN LESIONS, OVER 4 08/31/19 51520-GDYV SKIN LESIONS, OVER 4 06/07/19 43668-VTAP SKIN LESIONS, 2 TO 4 04/04/20 98964-FVLR SKIN LESIONS, 2 TO 4 06/10/19 51438-MGMF SKIN LESIONS, 2 TO 4 12/24/19 08630-WVAL SKIN LESIONS, 2 TO 4 09/21/19 40541-VSOI SKIN LESIONS, 2 TO 4 04/08/20 51705-Zzfx. Subungual Hematoma Next Appt Details Provider Name:Declan Burgess , 03/07/2025 11:15:00 AM, [address] [place] [address], [phone], Insurance Providers Payer Name Payer Address Payer Phone Subscriber Number Group Number Insured Name Patient Relationship to Insured Coverage Start Date Coverage End Date Medicare National Govt Svcs Inc [address] [place] [address] [id number] Yovanny Tiwari Self - patient is the insured [employer] [address] [place] [address] [id number] Yovanny Tiwari Self - patient is the insured Medical (General) History Medical History History ICD Code hypertension measles Surgical History Surgery Date(Month/Year) melanoma excision 04/2017 back surgery 01/15/21
--- OUTSIDE RECORDS SUMMARY | 2025-01-16 16:19 | XMS_ITS | Clinical Summary ---
Author Organization [facility] Address [facility] [place] [address] [address] Phone Care Team Providers Care Finisher Machine Name Role Phone Josemanuel Vital MD Primary Care Provider Social History Tobacco Use Types Packs/Day Years [...] not to disclose 2022 1:57 PM EDT Plan of Treatment Health Maintenance Due Date Last Done Comments Adult Td,Tdap Booster 1935 DEPRESSION SCREENING 1949 PNEUMOCOCCAL VACCINES (50+ y ears) (1 of 1 - PCV) 1987 ZOSTER VACCINES (1 of 2) 1987 RSV VACCINE (1 - 1-dose 75+ series) 2012 COVID-19 VACCINE (2023-2 5 season) 2024 HEPATITIS A VACCINES Aged Out No long er eligible based on patient's age to complete this topic HIB VACCINES Aged Out No longer eligi ble based on patient's age to complete this topic MENINGOCOCCAL VACCINES (ACWY) Aged Out No longer eligible based on patient's age to complete this topic MENINGOCOCCAL VACCINES (B) Aged Out N o longer eligible based on patient's age to complete this topic Medical Devices Not on file Insurance MEDICARE PART A & B [employer] MEDEX SUPPLEMENT MEDICARE PART A & B [employer] MEDEX SUPPLEMENT MEDICARE PART A & B [employer] MEDEX SUPPLEMENT MEDICARE PART A & B [employer] MEDEX SUPPLEMENT MEDICARE PART A & B [employer] MEDEX SUPPLEMENT MEDICARE PART A & B [employer]OSS MEDEX SUPPLEMENT Care Teams Finisher Machine Relationship Specialty Start Date End Date Josemanuel Vital MD [address] [place] [address] [place] [address] PCP - General Internal Medicine 10/18/22 Additional Source Comments The information contained in this document represents components of the legal health record. It is not the complete legal health record.[facility]
--- OUTSIDE RECORDS SUMMARY | 2025-01-16 16:19 | XMS_ITS | Patient Health Record ---
Author Organization [facility] Address [address] [place] [address] Care Team Providers Care Cigar Head Stringer Name Role Phone Amanuel (RETIRED) Josemanuel CLARKE Primary Care Provide r Unavailable Drew Phelan Unavailable [phone] Reason For Referral No Information Plan Of Treatment No Information
== END 2025-01-16 16:57 | disposition home or self-care (01) ==
LOC: HO.HMCHD 16:04
PROVIDERS: PCP Internal Medicine; Visit Provider Internal Medicine
DX: M51.9 Unspecified thoracic, thoracolumbar and lumbosacral intervertebral disc disorder (principal); I67.1 Cerebral aneurysm, nonruptured; R26.89 Other abnormalities of gait and mobility

== ENCOUNTER → 2025-01-16 16:04 | Outpatient (BNVA) | payer MEDICARE, SELFPAY | PROVIDERS: PCP Internal Medicine; Visit Provider Internal Medicine | DX: M51.9 Unspecified thoracic, thoracolumbar and lumbosacral intervertebral disc disorder (principal); I67.1 Cerebral aneurysm, nonruptured; R26.89 Other abnormalities of gait and mobility; Z79.899 Other long term (current) drug therapy; Z13.39 Encounter for screening examination for other mental health and behavioral disorders; Z13.30 Encounter for screening examination for mental health and behavioral disorders, unspecified | CPT/HCPCS: 96127; 99212 ==

== ENCOUNTER 2025-03-24 14:39 | Outpatient (AMB) | payer MEDICARE, SELFPAY ==
--- NOTE | 2025-03-24 14:40 | A.OFFPC_ITS ---
Vital Signs 03/24/25 14:44 03/24/25 17:11 Height 6 ft 0.05 in Weight 89.811 kg BMI 26.8 BP 146/88 H 130/86 Blood Pressure Location Lt brachial Position Sitting Respiration 18 Pulse 67 Pulse Source Pulse Oximeter Temp 97.5 F Temp Source Temporal Artery Scan Pulse Oximetry (%) 97 Oxygen Delivery Method Room Air Intake Visit Reasons: physical Perch Machine Inspector Required: No Accompanied by: Spouse Allergies No Known Allergies (No Known Allergies*) Allergy (Verified 03/24/25 14:40) Tobacco use date assessed: 01/16/25 Fall risk assessment: No Falls in past year Last assessed Fall Risk: 03/24/25 Dental Screening Dental Screen Date: 01/16/25 HPI HPI Comments History of Present Illness Details 89-year-old male with history of hyperte nsion, hematuria, lumbar disc disease, peripheral neuropathy, history of cerebral aneurysm presenting to the office today for management of chronic conditions. Here today with , Valentina. Hypertension-managed with lisinopril 5 mg daily. Initial blood pressure 146/88, recheck 130/86. Not checking at home Gait ataxia- had been following with PT for balance issues ongoing x2 months twice weekly. Feels stronger in his legs. Discontinued last monday. Went to [facility] in [place]. Dr. Marks. Feels it would be beneficial to continue with therapies to further assist with gait and reduce fall risk. He always ambulates with a cane except at night when he walks 20 laps from the garage to his mailbox but walks next to the fence so that he can balance himself Ascending aortic aneurysm-last echocardiogram 12/2022 showed 4.8 cm dilation Concerns: Diarrhea nocturnal, incontinent of stool ongoing x 6 months. 2-3 episodes in 6 months. Not eating any triggers. No blood. otherwise normal. ROS: General: No fevers, malaise, unintentional weight loss HEENT: No blurred vision, diplopia. No sore throat, nasal congestion, rhinorrhea, sinus pain, ear pain Cardiovascular: No chest pain, palpitations, or leg edema Respiratory: No shortness of breath, wheezing, cough GI: No abdominal pain, nausea, vomiting, diarrhea, constipation, melena, hematochezia : See HPI MSK: No myalgia, back pain Neuro: No headaches, weakness, paresthesias. See HPI Skin: No rashes or lesions EXAM: Constitutional - Awake and Alert, No apparent distress Eyes - PERRL Cardiovascular - S1S2, RRR, No edema Respiratory - Normal lung expansion, Normal respiratory effort, No respiratory distress, CTA bilaterally Extremities - no calf tenderness bilaterally, no swelling Skin - Warm/Dry Neurological - Alert & oriented x3, ataxic gait Psychological - Appropriate affect [facility] Medical History (Updated 03/24/25 @ 17:14 by SHIRIN Valadez) Ascending aortic aneurysm Diarrhea Ataxic gait Hematuria HTN (hypertension) Yeast dermatitis of penis Surgical History History of colonoscopy (~09/29/10) Family History Father No problems noted. Mother No problems noted. Social History Housing: House Alcohol intake: current Alcohol intake frequency: does not drink Patient Tobacco Use Status: Former Tobacco user Tobacco use type: Pipe e-Cigarette/Vaping Use: Former Use service: Yes Current occupational status: retired Cognitive needs: Yes (cane ) Hearing needs: No Vision needs: Yes (rx glassed) Questionnaire Thrive Questionnaire Date Thrive assessed: 01/16/25 LI-7 AMB Questionnaire LI-7 Date LI - 7 assessed: 01/16/25 Source: Developed by Drs. Yovanny Espino, Leslie Odell, Anders Limon and colleagues, with an educational eben from [employer]. Physical exam (Primary Care) Vital Signs: Last Vital Signs Temp 97.5 F 03/24/25 14:44 Pulse 67 03/24/25 14:44 Resp 18 03/24/25 14:44 BP 146/88 H 03/24/25 14:44 Pulse Ox 97 03/24/25 14:44 Oxygen Delivery Method Room Air 03/24/25 14:44 BMI result Body Mass Index 26.8 Tobacco/Smoking Status: Tobacco use Status Tobacco use date assessed 01/16/25 03/24/25 14:42 Patient Tobacco Use Status Former Tobacco user 03/24/25 14:42 Tobacco use type Pipe 03/24/25 14:42 e-Cigarette/Vaping Use Former Use 03/24/25 14:42 Thrive Assessment: Date of Thrive Assessment Date Thrive assessed 01/16/25 03/24/25 14:42 Coding Level of Care Code Est Pt Level 4 (74084) Complex EM visit Add On G2211 Diagnoses Ascending aortic aneurysm I71.21 Antalgic gait R26.89 HTN (hypertension) I10 Balance disorder R26.89 Diarrhea R19.7 Assessment & Plan Assessment & Plan (1) Ascending aortic aneurysm: Code(s): I71.21 - Aneurysm of the ascending aorta, without rupture Category: Medical Plan: Reviewed last echocardiogram. Repeat echo ordered for surveillance (2) Antalgic gait: Code(s): R26.89 - Other abnormalities of gait and mobility Category: Medical Plan: Referred back to physical therapy to continue help strengthening legs and reduce fall risk secondarily (3) HTN (hypertension): Code(s): I10 - Essential (primary) hypertension Category: Medical Plan: Controlled on recheck. Continue lisinopril 5 mg daily. Last renal function and electrolyte levels reassuring (4) Balance disorder: Code(s): R26.89 - Other abnormalities of gait and mobility Category: Medical Plan: As above. He is advised to use cane at all times. If he is going to walk along the fence, advised to still carry the cane. Refer to PT (5) Diarrhea: Code(s): R19.7 - Diarrhea, unspecified Category: Medical Plan: Given there have only been 2-3 episodes of fecal incontinence over the last 6 months, would recommend sleeping with depends, avoiding known triggers. Add fiber supplement. Should symptoms become more frequent, can consider referral to Gastroenterology Plan Follow-up in the office in 6 months with labs completed prior to visit Orders: Orders Liver Panel 6 Months R26.89 - Other abnormalities of gait and mobility PT Evaluation and Treatment Today M51.9 - Unspecified thoracic, thoracolumbar and lumbosacral intervertebral disc disorder, R26.0 - Ataxic gait, R26.89 - Other abnormalities of gait and mobility, R29.898 - Other symptoms and signs involving the musculoskeletal system CA echo transthoracic complete Today I71.21 - Aneurysm of the ascending aorta, without rupture Basic Metabolic Panel 6 Months Z00.00 - Encounter for general adult medical examination without abnormal findings Complete Blood Count Auto Diff 6 Months Z00.00 - Encounter for general adult medical examination without abnormal findings Lipid Panel 6 Months Z13.220 - Encounter for screening for lipoid disorders
[2025-03-24 14:44] VITALS: BP 146/88; PULSE 67; RESP 18; TEMP 36.4; O2SAT 97; BMI 26.8
[2025-03-24 17:11] VITALS: BP 130/86
== END 2025-03-24 15:23 | disposition home or self-care (01) ==
LOC: HO.HMCHD 14:39
PROVIDERS: PCP Physician Assistant; Visit Provider Physician Assistant
DX: I71.21 Aneurysm of the ascending aorta, without rupture (principal); R26.89 Other abnormalities of gait and mobility; I10 Essential (primary) hypertension; R19.7 Diarrhea, unspecified

== ENCOUNTER → 2025-03-24 14:39 | Outpatient (BNVA) | payer MEDICARE, SELFPAY | PROVIDERS: PCP Physician Assistant; Visit Provider Physician Assistant | DX: I10 Essential (primary) hypertension (principal); R26.0 Ataxic gait; I71.21 Aneurysm of the ascending aorta, without rupture; R19.7 Diarrhea, unspecified; R26.89 Other abnormalities of gait and mobility; R29.898 Other symptoms and signs involving the musculoskeletal system; M51.9 Unspecified thoracic, thoracolumbar and lumbosacral intervertebral disc disorder; Z79.899 Other long term (current) drug therapy | CPT/HCPCS: 99212 ==

== ENCOUNTER → 2025-04-23 12:33 | Outpatient (REF) | payer MEDICARE, SELFPAY ==
--- OUTSIDE RECORDS SUMMARY | 2020-10-11 23:00 | XMS_ITS | Encounter Summary ---
Author Organization [facility] Address [address] [place] [address] [place] [phone] Phone Care Team Providers Care Chief Nurse Executive Name Role Phone Unavailable Primary Care Provider Unavailabl e Encounter Details Date Type Department Care Team (Late st Contact Info) Description 10/12/2020 Hospital Encounter [facility] OUTSIDE [address] [place] [address] Fei Monsalve MD [address] [place] [phone] [email or web address] [facility] Social History Tobacco Use Types Packs/Day Years Used Date Smoking Tobacco: Never Assessed Education Answer Date Recorded Are you interested in more education? Not on yohan e 10/20/2022 Are you concerned about learning? Not on file 10/20/2022 No 10/20/2022 No 10/20/2022 Digital Access Answer Date Recorded No 10/20/2022 No 10/20/2022 Reliable internet access at home? Not on file 10/20/2022 Device with a working camera? Not on file Sex and Gender Information Value Date Recorded Sex Assigned at Not on file Legal Sex Male 3:06 PM EDT Gender Identity Choose not to disclose 1:57 PM EDT Sexual Orientation Choose not to disclose 2022 1:57 PM EDT documented as of this encounter Plan of Treatment Not on file documented as of this encounter Procedures Procedure Name Priority Date/Time Associated Diagnosis Comments MRI BRAIN OUTSIDE (NO INTERPRETATION) Routine 10/12/2020 12:00 AM EDT documented in this encounter Results * MRI Brain Outside (No Interpretation) (10/12/2020 12:00 AM EDT) Narrative [facility] IMG INTERFACES - 06/15/2023 1:40 PM EST This study is for PACS storage only and not for interpretation. us Fei Monsalve MD IMG OUTSIDE IMAGING W/OUT INTE RPRETATION Final Result [facility] IMG INTERFACES documented in this encounter Visit Diagnoses Not on filedocumented in this encounter Additional Source Comments The information contained in this document represents components of the legal health record. It is not the complete legal health record.[facility]
--- OUTSIDE RECORDS SUMMARY | 2021-06-15 | XMS_ITS | Encounter Summary ---
Author Organization [facility] Address [address] [place] [address] [place] [address] Phone Care Team Providers Care Photography And Prints Curator Name Role Phone Unavailable Primary Care Provider Unavailabl e Encounter Details Date Type Department Care Team (Late st Contact Info) Description 06/15/2021 Hospital Encounter [facility] IM[facility] OUTSIDE [address] [place] [address] Fei Monsalve MD [address] [place] [phone] [email or web address] Social History Tobacco Use Types [...] It is not the complete legal health record.[facility]
--- OUTSIDE RECORDS SUMMARY | 2022-08-25 23:00 | XMS_ITS | Encounter Summary ---
Author Organization [facility] Address [address] [place] [address] [place] [address] Phone Care Team Providers Care Addiction Psychiatrist Name Role Phone Unavailable Primary Care Provider Unavailabl e Encounter Details Date Type Department Care Team (Late st Contact Info) Description 08/26/2022 Hospital Encounter [facility] IMG OUTSIDE [address] [place] [phone] Fei Monsalve MD [address] [place] [phone] [email or web address] [email or web address] Social History Tobacco Use Types Packs/Day Years [...] It is not the complete legal health record.[facility]
--- OUTSIDE RECORDS SUMMARY | 2022-08-25 23:05 | XMS_ITS | Encounter Summary ---
Author Organization [facility] Address [address] [facility] [address] [place] [phone] Phone Care Team Providers Care Registration Rep Name Role Phone Unavailable Primary Care Provider Unavailabl e Encounter Details Date Type Department Care Team (Late st Contact Info) Description 08/26/2022 12:05 AM EDT Hospital Encounter [facility] IMG OUTSIDE [address] [place] [address] [phone] Fei Monsalve MD [address] [place] [phone] [email or web address] [email or web address] Social History Tobacco Use Types Packs/Day [...] It is not the complete legal health record.[facility]
--- NOTE | 2025-04-23 12:35 | CA_ITS ---
Transthoracic Echocardiogram Patient (Last, First, Middle): Yovanny Tiwari G Gender: M Date of : 1935 Age: 89 Procedure Date: 04/23/2025 Procedure Type: Transthoracic Echocardiogram Location: OP Height: 182.88 cm Weight: 88.99 kg BSA: 2.11 m2 Heart Rate: 58 bpm BP: 126 / 78 mmHg Biomedical Electronics Technician: TO Referring MD: Stephanie CARPIO Symptoms: I71.21 - Aneurysm of the ascending aorta, without rupture Study Quality: Adequate ECG Rhythm: Sinus with extra beats Conclusions: - The left ventricular systolic function is normal. The calculated ejection fraction is 59% by biplane method. - No obvious valvular pathology seen on this study. - There is mild dilatation of the sinuses of Valsalva measuring 4.47 cm and moderate dilatation of the ascending aorta measuring 4.60 cm. Findings Left Ventricle Normal left ventricular cavity size. The left ventricular systolic function is normal. The calculated ejection fraction is 59% by biplane method. There is no evidence of regional wall motion abnormalities. Evidence suggests grade I (mild) diastolic dysfunction. There is mild septal and mild basal asymmetric hypertrophy. Right Ventricle Mildly increased right ventricular cavity size. There is normal right ventricular systolic function. Atria Both atria are normal in size. Aortic Valve There is a normal trileaflet aortic valve. There is mild calcification of the aortic valve. There is no aortic valve stenosis. There is no aortic valve regurgitation. Mitral Valve The mitral valve appears normal. There is no mitral valve regurgitation. There is no mitral valve stenosis. Pulmonic Valve The pulmonic valve is likely normal. Tricuspid Valve There is trace tricuspid valve regurgitation. There is no evidence of pulmonary hypertension. Great Vessels The aortic arch is normal in size. There is mild dilatation of the sinuses of Valsalva measuring 4.47 cm and moderate dilatation of the ascending aorta measuring 4.60 cm. Venous The inferior vena cava is normal in size and collapses greater than 50% with inspiration. Pericardium/Pleural There is no evidence of pericardial effusion. Prior Study Comparison No significant change compared to prior study dated: 01/13/2023. Recommendations, Care & Conclusions No obvious valvular pathology seen on this study. Measurements 2D Linear Measurements IVSd: 1.06 0.6-0.9/0.6-1.0 cm LVIDd: 4.78 3.9-5.3/4.2-5.9 cm LVIDd Index: 2.27 2.4-3.2/2.2-3.1 cm/m2 LVIDs: 2.93 2.0-3.6 cm LVPWd: 0.84 0.7-1.1 cm LA Diam: 3.40 2.7-3.8/3.0-4.0 cm LAIDs Index: 1.61 1.5-2.3 cm/m2 LV Mass: 195.86 67-162/88-224 g LV Mass Index: 92.82 43-95/49-115 g/m2 LVOT Diam: 2.40 3.0+(-)1.3 cm 2D Systolic Function EF 4C: 58.40 >55% EF 2C: 56.10 >55% EF BiP: 58.50 >55% Mitral Valve MV Pk E: 0.51 MV PK A: 0.90 MV Decel Time: 275.00 E/A: 0.60 E'Lateral: 4.35 E'Medial: 3.05 E/E' Med: 16.60 E/E' Lat: 11.60 PHT: 80.00 MVA PHT: 2.75 Decel [place]: 1.84 Aortic Valve AoV Pk Kiel: 1.09 AoV Mn Kiel: 0.74 AoV VTI: 0.23 AoV Pk Grad: 5.00 Aov Mn Grad: 2.00 LUKAS Cont.VTI: 3.98 LVOT LVOT Pk Kiel: 0.94 LVOT Mn Kiel: 0.60 LVOT VTI: 0.20 LVOT Pk Grad: 4.00 LVOT Mn Grad: 2.00 LVOT Diam: 2.40 LVOT Area: 4.52 Diastolic Function MV Pk E: 0.51 MV Pk A: 0.90 E/A: 0.60 E'Medial: 3.05 E/E' Med: 16.60 E' Laterial: 4.35 E/E' Lat: 11.60 Right Ventricle TAPSE (mm): 26.90 TVS' Kiel: 14.60 Tricuspid Valve TR Pk Kiel: 2.06 TR Pk Grad: 17.00 RA Press: 3.00 RVSP: 20.00 Great Vessels Aorta Sinus of Valsalva: 4.47 2.0-3.5 cm Ao Asc: 4.60 2.1-3.4 cm Ao Arch: 3.30 Updated in Other Vendor System with Status of Final Myron Castellano MD electronically signed on 04/25/2025 11:34:00 AM with status of Final
--- OUTSIDE RECORDS SUMMARY | 2025-04-23 14:48 | XMS_ITS | Clinical Summary ---
Author Organization [facility] Address [facility] [employer] [address] [address] Phone Care Team Providers Care Direct Support Staff Member Name Role Phone Josemanuel Viatl MD Primary Care Provider Social History Tobacco [...] EDT Gender Identity Choose not to disclose 3 1:57 PM EDT Sexual Orientation Choose not to disclose 2022 1:57 PM EDT Plan of Treatment Health Maintenance Due Date Last Done Comments Adult Td,Tdap Booster 1935 DEPRESSION SCREENING 1949 PNEUMOCOCCAL VACCINES (50+ y ears) (1 of 1 - PCV) 1987 ZOSTER VACCINES (1 of 2) 1987 RSV VACCINE (1 - 1-dose 75+ series) 2012 INFLUENZA VACCINE (#1) 2024 COVID-19 VACCINE ( - 2024-2 6 season) 2025 HEPATITIS A VACCINES Aged Out No long [...] file Insurance MEDICARE PART A & B [employer] MEDEX SUPPLEMENT MEDICARE PART A & B [employer] MEDEX SUPPLEMENT MEDICARE PART A & B [employer] MEDEX SUPPLEMENT MEDICARE PART A & B Member Subscriber Plan / Payer ( fective 2002-Present) Name:Yovanny Tiwari Member ID:[id number] Relation to Subscriber:Self Name:Yovanny Tiwari Subscriber ID:[id number] Payer ID:[id number] Group ID:Not on file Type:Medicare Address: [facility] [employer] [facility] [address] [place] [phone] [employer] MEDEX SUPPLEMENT MEDICARE PART A & B [employer] MEDEX SUPPLEMENT MEDICARE PART A & B [employer] MEDEX SUPPLEMENT Care Teams Direct Support Staff Member Relationship Specialty Start Date End Date Josemanuel Vital MD [address] [place] [address] [place] [address] PCP - General Internal Medicine 10/18/22 Additional Source Comments The information contained in this document represents components of the legal health record. It is not the complete legal health record.[facility]
== END ==
LOC: HO.CARD 12:33
PROVIDERS: PCP Physician Assistant; Visit Provider Physician Assistant
DX: I71.21 Aneurysm of the ascending aorta, without rupture (principal)
CPT/HCPCS: 93306

== ENCOUNTER → 2025-04-23 12:35 | Outpatient (BNV) | payer MEDICARE, SELFPAY | PROVIDERS: PCP Physician Assistant; Visit Provider Internal Medicine | DX: I42.2 Other hypertrophic cardiomyopathy (principal); I71.21 Aneurysm of the ascending aorta, without rupture | CPT/HCPCS: 93306 ==

== ENCOUNTER 2025-05-13 13:49 | Outpatient (AMB) | payer MEDICARE, SELFPAY ==
--- OUTSIDE RECORDS SUMMARY | 2020-10-11 23:00 | XMS_ITS | Encounter Summary ---
Author Organization [facility] Address [address] [place] [address] [place] [address] Phone Care Team Providers Care Veterinary Inspector Name Role Phone Unavailable Primary Care Provider Unavailabl e Encounter Details Date Type Department Care Team (Late st Contact Info) Description 10/12/2020 Hospital Encounter [facility] OUTSIDE [address] [place] [phone] Fei Monsalve MD [address] [place] [phone] [email or web address] [facility] Social History Tobacco Use Types Packs/Day [...] It is not the complete legal health record.[facility]
--- OUTSIDE RECORDS SUMMARY | 2021-06-15 | XMS_ITS | Encounter Summary ---
Author Organization [facility] Address Formerly [facility] [employer] [facility] [address] [place] [address] Phone Care Team Providers Care Cattle Brander Name Role Phone Unavailable Primary Care Provider Unavailabl e Encounter Details Date Type Department Care Team (Late st Contact Info) Description 06/15/2021 Hospital Encounter [facility] OUTSIDE [address] [place] [address] [phone] Fei Monsalve MD [address] [place] [phone] [email or web address] Social History Tobacco Use Types [...] Comments MRI BRAIN OUTSIDE (NO INTERPRETATION) Routine 06/15/2021 12:00 AM EST documented in this encounter Results * MRI Brain Outside (No Interpretation) (06/15/2021 12:00 AM EST) Narrative [facility] IMG INTERFACES - 06/15/2023 1:37 PM EST This study is for PACS storage only and not for interpretation. us Fei Monsalve MD IMG OUTSIDE IMAGING W/OUT INTE RPRETATION Final Result [facility] IMG INTERFACES documented in this encounter Visit Diagnoses Not on filedocumented in this encounter Additional Source Comments The information contained in this document represents components of the legal health record. It is not the complete legal health record.[facility]
--- OUTSIDE RECORDS SUMMARY | 2022-08-25 23:00 | XMS_ITS | Encounter Summary ---
Author Organization [facility] Address [address] [place] [address] [place] [phone] Phone Care Team Providers Care Supervisor Liquid Yeast Name Role Phone Unavailable Primary Care Provider Unavailabl e Encounter Details Date Type Department Care Team (Late st Contact Info) Description 08/26/2022 Hospital Encounter [facility] IMG OUTSIDE [address] [place] [phone] Fei Monsalve MD [address] [place] [phone] [email or web address] [email or web address] Social History Tobacco Use Types Packs/Day Years [...] Comments MRI BRAIN OUTSIDE (NO INTERPRETATION) Routine 08/26/2022 12:00 AM EDT documented in this encounter Results * MRI Brain Outside (No Interpretation) (08/26/2022 12:00 AM EDT) Narrative [facility] IMG INTERFACES - 06/15/2023 1:32 PM EST This study is for PACS storage only and not for interpretation. us Fei Monsalve MD IMG OUTSIDE IMAGING W/OUT INTE RPRETATION Final Result [facility] IMG INTERFACES documented in this encounter Visit Diagnoses Not on filedocumented in this encounter Additional Source Comments The information contained in this document represents components of the legal health record. It is not the complete legal health record.[facility]
--- OUTSIDE RECORDS SUMMARY | 2022-08-25 23:05 | XMS_ITS | Encounter Summary ---
Author Organization [facility] Address [address] [facility] [address] [place] [address] Phone Care Team Providers Care Furniture Designer Name Role Phone Unavailable Primary Care Provider Unavailabl e Encounter Details Date Type Department Care Team (Late st Contact Info) Description 08/26/2022 12:05 AM EDT Hospital Encounter [facility] IMG OUTSIDE [address] [place] [address] [phone] Fei Monsalve MD [address] [place] [phone] [email or web address] [place] [place]. [facility] Social History Tobacco Use Types Packs/Day Years [...] MRI BRAIN OUTSIDE (NO INTERPRETATION) Routine 08/26/2022 12:05 AM EDT documented in this encounter Results * MRI Brain Outside (No Interpretation) (08/26/2022 12:05 AM EDT) Narrative [facility] IMG INTERFACES - [...] It is not the complete legal health record.[facility]
--- NOTE | 2025-05-13 13:49 | A.OFFPC_ITS ---
Vital Signs 05/13/25 13:52 Height 6 ft 0.5 in Weight 90.322 kg BMI 26.6 BP 134/70 Blood Pressure Location Lt brachial Respiration 16 Pulse 52 Pulse Source Pulse Oximeter Temp 97.7 F Temp Source Temporal Artery Scan Pulse Oximetry (%) 98 Oxygen Delivery Method Room Air Intake Visit Reasons: RE Cardiac Referral Case Packer And Sealer Required: No Accompanied by: Self / Same As Patient Allergies No Known Allergies (No Known Allergies*) Allergy (Verified 05/13/25 13:49) Tobacco use date assessed: 01/16/25 Dental Screening Dental Screen Date: 01/16/25 HPI HPI Comments History of Present Illness Details 89-year-old male with history of hyperte nsion, hematuria, lumbar disc disease, peripheral neuropathy, history of cerebral aneurysm presenting to the office today for management of chronic conditions. Here today with , Valentina. Hypertension-managed with lisinopril 5 mg daily. Initial blood pressure 146/88, recheck 130/86. Not checking at home Gait ataxia- had been following with PT for balance issues ongoing x2 months twice weekly. Feels stronger in his legs. Discontinued last monday. Went to [facility] in [place]. Dr. Marks. Feels it would be beneficial to continue with therapies to further assist with gait and reduce fall risk. He always ambulates with a cane except at night when he walks 20 laps from the garage to his mailbox but walks next to the fence so that he can balance himself. He feels that he has made progress with physical therapy and feels stronger in his legs but feels that he could benefit from additional therapy and has updated referral. Ascending aortic aneurysm-last echocardiogram 12/2022 showed 4.8 cm dilation Concerns: Ascending aortic aneurysm. Patient reports that he was not contacted regarding cardiology referral. We did discuss that he was contacted by my MA regarding the referral but I am here to answer any further questions that he may have. We discussed that overall, the size of the aneurysm/dilation is stable overall, largest 4.8 cm. Discussed that more concerning is when the sizes encroaching on 5.0 cm. Discussed signs and symptoms that are concerning. Discussed that Cardiology can evaluate and monitor. Discussed the importance of tight blood pressure control. No dyspnea, lightheadedness, syncope, chest pain ROS: General: No fevers, malaise, unintentional weight loss HEENT: No blurred vision, diplopia. No sore throat, nasal congestion, rhinorrhea, sinus pain, ear pain Cardiovascular: No chest pain, palpitations, or leg edema Respiratory: No shortness of breath, wheezing, cough GI: No abdominal pain, nausea, vomiting, diarrhea, constipation, melena, hematochezia : See HPI MSK: No myalgia, back pain Neuro: No headaches, weakness, paresthesias. See HPI Skin: No rashes or lesions EXAM: Constitutional - Awake and Alert, No apparent distress Eyes - PERRL Cardiovascular - S1S2, RRR, No edema Respiratory - Normal lung expansion, Normal respiratory effort, No respiratory distress, CTA bilaterally Extremities - no calf tenderness bilaterally, no swelling Skin - Warm/Dry Neurological - Alert & oriented x3, ataxic gait Psychological - Appropriate affect [facility] Medical History (Updated 03/24/25 @ 17:14 by SHIRIN Valadez) Ascending aortic aneurysm Diarrhea Ataxic gait Hematuria HTN (hypertension) Yeast dermatitis of penis Surgical History History of colonoscopy (~09/29/10) Family History Father No problems noted. Mother No problems noted. Social History Housing: House Alcohol intake: current Alcohol intake frequency: does not drink Patient Tobacco Use Status: Former Tobacco user Tobacco use type: Pipe e-Cigarette/Vaping Use: Former Use service: Yes Current occupational status: retired Cognitive needs: Yes (cane ) Hearing needs: No Vision needs: Yes (rx glassed) Questionnaire Thrive Questionnaire Date Thrive assessed: 01/16/25 LI-7 AMB Questionnaire LI-7 Date LI - 7 assessed: 01/16/25 Source: Developed by Drs. Yovanny Espino, Leslie Odell, Anders Limon and colleagues, with an educational eben from [employer]. Physical exam (Primary Care) Vital Signs: Last Vital Signs Temp 97.7 F 05/13/25 13:52 Pulse 52 05/13/25 13:52 Resp 16 05/13/25 13:52 BP 134/70 05/13/25 13:52 Pulse Ox 98 05/13/25 13:52 Oxygen Delivery Method Room Air 05/13/25 13:52 BMI result Body Mass Index 26.6 Tobacco/Smoking Status: Tobacco use Status Tobacco use date assessed 01/16/25 05/13/25 13:52 Patient Tobacco Use Status Former Tobacco user 05/13/25 13:52 Tobacco use type Pipe 05/13/25 13:52 e-Cigarette/Vaping Use Former Use 05/13/25 13:52 Thrive Assessment: Date of Thrive Assessment Date Thrive assessed 01/16/25 05/13/25 13:52 Coding Level of Care Code Est Pt Level 4 (15523) Add On Problem Visit Only Diagnoses Ascending aortic aneurysm I71.21 Antalgic gait R26.89 HTN (hypertension) I10 Balance disorder R26.89 Assessment & Plan Assessment & Plan (1) Ascending aortic aneurysm: Code(s): I71.21 - Aneurysm of the ascending aorta, without rupture Category: Medical Plan: Reviewed last echocardiogram, overall stable compared to priors. Discussed the importance of tight blood pressure control. Referred to cardiology for further surveillance. (2) Antalgic gait: Code(s): R26.89 - Other abnormalities of gait and mobility Category: Medical Plan: Referred back to physical therapy to continue help strengthening legs and reduce fall risk secondarily. Continue following with Neurology (3) HTN (hypertension): Code(s): I10 - Essential (primary) hypertension Category: Medical Plan: Controlled on recheck. Continue lisinopril 5 mg daily. Last renal function and electrolyte levels reassuring (4) Balance disorder: Code(s): R26.89 - Other abnormalities of gait and mobility Category: Medical Plan: As above. He is advised to use cane at all times. If he is going to walk along the fence, advised to still carry the cane. Refer to PT and continue following with Neurology Plan Follow-up as scheduled Refer to audiology due to tinnitus Orders: Referrals Audiology Referral H93.19 - Tinnitus, unspecified ear
[2025-05-13 13:52] VITALS: BP 134/70; PULSE 52; RESP 16; TEMP 36.5; O2SAT 98; BMI 26.6
--- OUTSIDE RECORDS SUMMARY | 2025-05-13 15:01 | XMS_ITS | Patient Health Record ---
Author Organization [facility] Amado jayleen [place] Address [address] [place] [address] Care Team Providers Care Applied Mathematician Name Role Phone Smita, Hermila Primary Care Provider Declan Reddy Unavailable [phone] Allergies No Known Allergies Reason For Referral No Information Medications Medication SIG (Take, Route, Fr equency, Duration) Notes Start Date End Date Status Gabapentin 300 MG as directed Oral Once a day Not-Taking Aspirin 81 MG 1 tablet Orally Once a day; Duration: 30 day(s) Not-Taking Lisinopril 5 MG Orally Acti ve [...] Notes Are you an other tobacco user? Yes P ipe smoker Tobacco Control (Standard) Question Answer Notes Tobacco [...] atherosclerosis of arteries of lower limbs (disorder) ([id number] ) Atherosclerosis of [place] artery of both lower extremities, with unspecified presence of clinical manifestation (I70.203) Active confirmed Q7(A), Q8(2B), Q9(1B,2 C) Vital Signs Blood pressure diastolic 68 mm Hg 03/07/2025 Height 6 ft in 03/07/2025 Blood pressure systolic 123 mm Hg 03/07/2025 Weight 200 lbs 03/07/2025 BMI 27.12 kg/m2 03/07/2025 Procedures Procedure Date Ordered Date Performed Result Body Sit e 99847-FQFFSWQ NAIL, 6 OR MORE 06/07/2024 N/A 88421-YTAF SKIN LESIONS, OVER 4 06/07/2024 N/A 86233-XUESCTK NAIL, 6 OR MORE 08/30/2024 N/A 67870-WIDQ SKIN LESIONS, OVER 4 08/30/2024 N/A 24178-FWDZTDV NAIL, 6 OR MORE 12/06/2024 N/A 75368-TBHA SKIN LESIONS, OVER 4 12/06/2024 N/A 51475-OCYBCYI NAIL, 6 OR MORE 03/07/2025 N/A 16965-SPRS SKIN LESIONS, OVER 4 03/07/2025 N/A Encounters Encounter Location Date Provider Diagnosis [address] [address] 06/07/2024 Declan Burgess Atherosclerosis of chehalis artery of both lower extremities, with unspecified presence of clinical manifestation I70.203 ; Tinea unguium B35.1 ; Pain in right toe(s) M79.674 and Pain in left toe(s) M79.[address] [address] 08/30/2024 Declanboyd ArchuletaAditya Atherosclerosis of chehalis artery of both lower extremities, with unspecified presence of clinical manifestation I70.203 ; Tinea unguium B35.1 ; Pain in right toe(s) M79.674 and Pain in left toe(s) M79.[address] [address] 12/06/2024 Declan Aditya Atherosclerosis of [place] artery of both lower extremities, with unspecified presence of clinical manifestation I70.203 ; Tinea unguium B35.1 ; Pain in right toe(s) M79.674 and [facility] in left toe(s) [facility] [address] 03/07/2025 Declan Burgess Atherosclerosis of che[place] artery of both lower extremities, with unspecified presence of clinical manifestation I70.203 ; Tinea unguium B35.1 ; Pain in right toe(s) M79.674 and Pain in left toe(s) M79.[address] [address] 05/13/2025 Declan Burgess Assessments Encounter Date Diagnosis (ICD Code) Assessment Notes Treatment Notes Treatment Clinical Notes Section Notes 06/07/2024 Atherosclerosis of chehalis artery of both lower extremities, with unspecified presence of clinical manifestation (ICD-10 - I70.203) Q7(A), Q8(2B), Q9(1B,2C) 08/30/2024 Tinea unguium (ICD-10 - B35.1) 08/30/2024 Atherosclerosis of [place]is artery of both lower extremities, with unspecified presence of clinical manifestation (ICD-10 - I70.203) Q7(A), Q8(2B), Q9(1B,2C) 12/06/2024 Tinea unguium (ICD-10 - B35.1) 12/06/2024 Atherosclerosis of [place]is artery of both lower extremities, with unspecified presence of clinical manifestation (ICD-10 - I70.203) Q7(A), Q8(2B), Q9(1B,2C) 03/07/2025 Tinea unguium (ICD-10 - B35.1) 03/07/2025 Atherosclerosis of chehalis artery of both lower extremities, with unspecified presence of clinical manifestation (ICD-10 - I70.203) Q7(A), Q8(2B), Q9(1B,2C) 12/06/2024 Pain in right toe(s) (ICD-10 - M79.674) 03/07/2025 Pain in right toe(s) (ICD-10 - M79.674) 08/30/2024 Pain in right toe(s) (ICD-10 - M79.674) 06/07/2024 Tinea unguium (ICD-10 - B35.1) 06/07/2024 Pain in right toe(s) (ICD-10 - M79.674) 08/30/2024 Pain in left toe(s) (ICD-10 - M79.675) 03/07/2025 Pain in left toe(s) (ICD-10 - M79.675) 12/06/2024 Pain in left toe(s) (ICD-10 - M79.675) 06/07/2024 Pain in left toe(s) (ICD-10 - M79.675) Plan Of Treatment Pending Test Test Name Order Date 49391-OGXINYO NAIL, 6 OR MORE 04/12/2011 66672-QUBHVKV NAIL, 6 OR MORE 07/08/2011 24879-PEWOPQK NAIL, 6 OR MORE 12/09/2011 29473-VUINCTL NAIL, 6 OR MORE 03/20/2012 50253-JBCPRLG NAIL, 6 OR MORE 06/19/2012 52766-QOMIUIR NAIL, 6 OR MORE 09/25/2012 33318-BRZIKYK NAIL, 6 OR MORE 09/13/2013 75251-KLKRNCU NAIL, 6 OR MORE 12/13/2013 64157-USAJPJN NAIL, 6 OR MORE 03/21/2014 72466-SSRTAAV NAIL, 6 OR MORE 06/27/2014 47364-SKSZKEC NAIL, 6 OR MORE 10/17/2014 32700-HDKQQMG NAIL, 6 OR MORE 04/24/2015 92662-TTITVPL NAIL, 6 OR MORE 08/18/2015 63281-GQVVSOR NAIL, 6 OR MORE 11/17/2015 30509-ZMCSDNU NAIL, 6 OR MORE 02/19/2016 00056-POIMRXZ NAIL, 6 OR MORE 05/27/2016 76693-BRKKGLY NAIL, 6 OR MORE 08/26/2016 71362-HHODEDJ NAIL, 6 OR MORE 12/02/2016 65548-JXIKYCJ NAIL, 6 OR MORE 03/03/2017 10169-MFXGVHM NAIL, 6 OR MORE 06/09/2017 48436-HISKBKB NAIL, 6 OR MORE 09/08/2017 77911-OODUHXN NAIL, 6 OR MORE 12/22/2017 42883-WPRIXSS NAIL, 6 OR MORE 03/23/2018 31181-CTMDCPK NAIL, 6 OR MORE 07/06/2018 45810-CWICXAL NAIL, 6 OR MORE 10/09/2018 25240-KFUXIXG NAIL, 6 OR MORE 02/19/2019 14470-ELUGWEX NAIL, 6 OR MORE 04/26/2019 98261-QFVZQLI NAIL, 6 OR MORE 07/12/2019 26925-CHYLNYQ NAIL, 6 OR MORE 10/18/2019 96983-KEMXNJW NAIL, 6 OR MORE 12/31/2019 62268-LQQTDPX NAIL, 6 OR MORE 04/21/2020 60011-LJVGDWG NAIL, 6 OR MORE 07/14/2020 10185-XFGGDCR NAIL, 6 OR MORE 09/22/2020 75764-GASSNGS NAIL, 6 OR MORE 12/15/2020 27560-LSXCSVI NAIL, 6 OR MORE 03/19/2021 60909-YNKBULD NAIL, 6 OR MORE 06/04/2021 30751-YLNCXKY NAIL, 6 OR MORE 08/27/2021 51838-DZLPXJJ NAIL, 6 OR MORE 11/12/2021 62518-ORVQRBN NAIL, 6 OR MORE 01/28/2022 79758-IVYSGFV NAIL, 6 OR MORE 04/08/2022 45390-VBZONSP NAIL, 6 OR MORE 01/02/2015 01760-AESWLDL NAIL, 6 OR MORE 06/10/2022 29984-VZBQYBK NAIL, 6 OR MORE 09/20/2022 87465-IDDQUKV NAIL, 6 OR MORE 12/23/2022 21168-DLDJYQS NAIL, 6 OR MORE 04/04/2023 58199-JKWIBFA NAIL, 6 OR MORE 07/07/2023 33068-QIRSSLD NAIL, 6 OR MORE 12/15/2023 77254-RLNSJLY NAIL, 6 OR MORE 03/12/2024 01551-NUBUZZT NAIL, 6 OR MORE 06/07/2024 38848-KRMEWDV NAIL, 6 OR MORE 08/30/2024 77688-AYBALHG NAIL, 6 OR MORE 12/06/2024 09000-WGZUYBT NAIL, 6 OR MORE 03/07/2025 06075-Oyprkbub Plate 07/07/2023 66065-Ozoyhmlc Plate 03/12/2024 21090- Debride <25 sq cm 01/02/2015 15889- Debride <25 sq cm 04/21/2020 89837- Debride <25 sq cm 10/17/2014 40795- Debride <25 sq cm 06/27/2014 25329- Debride <25 sq cm 03/21/2014 81599- Debride <25 sq cm 12/13/2013 78830- Debride <25 sq cm 09/13/2013 05206-JUUE SKIN LESIONS, OVER 4 07/07/19 99048-HSZZ SKIN LESIONS, OVER 4 03/12/20 88451-FKAU SKIN LESIONS, OVER 4 12/15/19 37370-PWGE SKIN LESIONS, OVER 4 03/07/20 32087-CTII SKIN LESIONS, OVER 4 12/07/19 13155-OAHV SKIN LESIONS, OVER 4 08/31/19 48949-YQNZ SKIN LESIONS, OVER 4 06/07/19 87627-BZKY SKIN LESIONS, 2 TO 4 04/04/20 62783-INVZ SKIN LESIONS, 2 TO 4 06/10/19 25456-FTOM SKIN LESIONS, 2 TO 4 12/24/19 78477-OUMB SKIN LESIONS, 2 TO 4 09/21/19 70598-CCDO SKIN LESIONS, 2 TO 4 04/08/20 50706-Ympu. Subungual Hematoma Next Appt Details Provider Name:Declan Bonilla Aditya , 07/22/2025 11:15:00 AM, [address] [place] [address], [phone], Insurance Providers Payer Name Payer Address Payer Phone Subscriber Number Group Number Insured Name Patient Relationship to Insured Coverage Start Date Coverage End Date Medicare National [facility] [address] [place] [address] [id number] Yovanny Tiwari Self - patient is the insured [employer] [address] [place] [address] [id number] Yovanny Tiwari Self - patient is the insured Medical (General) History Medical History History ICD Code hypertension measles Surgical History Surgery Date(Month/Year) melanoma excision 04/2017 back surgery 01/15/21
--- OUTSIDE RECORDS SUMMARY | 2025-05-13 15:01 | XMS_ITS | Clinical Summary ---
Author Organization [facility] Address [facility] [employer] [address] [address] Phone Care Team Providers Care Sharepoint Solutions Developer Name Role Phone Josemanuel Vital MD Primary [...] file Insurance MEDICARE PART A & B [employer] MEDEX SUPPLEMENT MEDICARE PART A & B Member Subscriber Plan / Payer (Ef fective 2002-Present) Name:Yovanny Tiwari Member ID:[id number] Relation to Subscriber:Self Name:Yovanny Tiwari Subscriber ID:[id number] Payer ID:[id number] Group ID:Not on file Type:Medicare Address: [employer] [address] [place] [address] [employer] MEDEX SUPPLEMENT MEDICARE PART A & B Member Subscriber Plan / Payer ( fective 2002-) Name:Yovanny Tiwari Member ID:[id number] Relation to Subscriber:Self Name:Yovanny Tiwari Subscriber ID:[id number] Payer ID:[id number] Group ID:Not on file Type:Medicare Address: [employer] [address] [place], [place] [phone] [employer] MEDEX SUPPLEMENT MEDICARE PART A & B Member Subscriber Plan / Payer ( fective 2002-Present) Name:Yovanyn Tiwari Member ID:[id number] Relation to Subscriber:Self Name:Yovanny Tiwari Subscriber ID:[id number] Payer ID:[id number] Group ID:Not on file Type:Medicare Address: [facility] [address] [place] [phone] [employer]OSS MEDEX SUPPLEMENT MEDICARE PART A & B [employer] MEDEX SUPPLEMENT MEDICARE PART A & B Member Subscriber Plan / Payer (Ef fective 2002-Present) Name:Yovanny Tiwari Member ID:[id number] Relation to Subscriber:Self Name:Yovanny Tiwari Subscriber ID:[id number] Payer ID:[id number] Group ID:Not on file Type:Medicare Address: [employer] [address] [place] [address] [employer] CROSS MEDEX SUPPLEMENT Care Teams Sharepoint Solutions Developer Relationship Specialty Start Date End Date Josemanuel Vital MD [address] [place] [address] [place] [address] PCP - General Internal Medicine 10/18/22 Additional Source Comments The information contained in this document represents components of the legal health record. It is not the complete legal health record.[facility]
--- OUTSIDE RECORDS SUMMARY | 2025-05-13 15:01 | XMS_ITS | Patient Health Record ---
Author Organization [facility] Address [address] [place] [address] Care Team Providers Care Tableau Report Developer Name Role Phone Amanuel (RETIRED) Josemanuel CLARKE Primary Care Provide r Unavailable Drew Phelan Unavailable [phone] Reason For Referral No Information Plan Of Treatment No Information
== END 2025-05-13 14:15 | disposition home or self-care (01) ==
LOC: HO.HMCHD 13:49
PROVIDERS: PCP Physician Assistant; Visit Provider Physician Assistant
DX: I71.21 Aneurysm of the ascending aorta, without rupture (principal); R26.89 Other abnormalities of gait and mobility; I10 Essential (primary) hypertension

== ENCOUNTER → 2025-05-13 13:49 | Outpatient (BNVA) | payer MEDICARE, SELFPAY | PROVIDERS: PCP Physician Assistant; Visit Provider Physician Assistant | DX: I71.21 Aneurysm of the ascending aorta, without rupture (principal); R26.89 Other abnormalities of gait and mobility; I10 Essential (primary) hypertension | CPT/HCPCS: 99212 ==